=== PATIENT | female | born 1995 | race Caucasian/White ===

== ENCOUNTER 2019-03-19 16:15 | Observation (INO) | payer SELFPAY | END 2019-03-19 17:40 | disposition home or self-care (01) | LOC: MW.OBCHECK 16:15 → MW.OB 16:26 | PROVIDERS: ADMIT Obstetrics & Gynecology; ATTEND Obstetrics & Gynecology | DX: O99.89 Other specified diseases and conditions complicating pregnancy, childbirth and the puerperium (principal); R10.30 Lower abdominal pain, unspecified; Z91.040 Latex allergy status; Z3A.32 32 weeks gestation of pregnancy | CPT/HCPCS: 59025; 80305-QW; 81003 ==

== ENCOUNTER 2019-03-28 22:20 | Emergency (ER) | payer SELFPAY ==
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
[2019-03-28] MEDS ORDERED: Ondansetron 4 MG Tab.DIS PO ONE (23:05)
== END 2019-03-29 00:26 | disposition home or self-care (01) ==
LOC: MW.ED 22:20
DX: O99.343 Other mental disorders complicating pregnancy, third trimester (principal); F32.9 Major depressive disorder, single episode, unspecified; Z3A.33 33 weeks gestation of pregnancy; Z91.040 Latex allergy status
CPT/HCPCS: 59025; 99284; A9270

== ENCOUNTER 2019-05-08 00:47 | Inpatient (IN) | payer SELFPAY ==
[2019-05-08] MEDS ORDERED: Sodium Chloride 0.9% 10 ML Syringe FLUSH PRN (00:55)
[2019-05-08] MEDS ORDERED: Methylergonovine 0.2 MG/1 ML Amp IM PRN (00:55)
[2019-05-08] MEDS ORDERED: Terbutaline 1 MG/ML SDV SUBCUT PRN (00:55)
[2019-05-08] MEDS ORDERED: Carboprost Tromethamine 250 MCG/1 ML Amp IM PRN (00:55)
[2019-05-08] MEDS ORDERED: Tranexamic Acid 1,000 MG in Sodium Chloride 0.9% 100 ML IV PRN (00:55)
[2019-05-08] MEDS ORDERED: Butorphanol 1 MG/ML SDV IVPUSH PRN (00:55)
[2019-05-08] MEDS ORDERED: Sodium Chloride 0.9% 2.5 ML Syringe FLUSH PRN (00:55)
[2019-05-08] MEDS ORDERED: Misoprostol 200 MCG Tab PO PRN (00:55)
[2019-05-08] MEDS ORDERED: Sodium Chloride 0.9% 10 ML SDV IV PRN (00:55)
[2019-05-08] MEDS ORDERED: Lidocaine 1% 50 ML MDV INJECT PRN (00:55)
[2019-05-08] MEDS ORDERED: Water For Irrigation,Sterile 1,000 ML Container IRR PRN (00:55)
[2019-05-08] MEDS ORDERED: Misoprostol 25 MCG (1/4 of 100 MCG) Tab VAG PRN ×2 (00:55)
[2019-05-08] MEDS ORDERED: Oxytocin/0.9 % Sodium Chloride 30 UNIT/500 ML BAG IV SCH ×2 (01:00)
[2019-05-08] MEDS ORDERED: Ondansetron 4 MG/2 ML SDV IVPUSH PRN (01:03)
[2019-05-08] MEDS ORDERED: Ampicillin 2 GM in Sodium Chloride 0.9% 100 ML IV ONE (01:05)
[2019-05-08] MEDS: Misoprostol 25 MCG (1/4 of 100 MCG) Tab PO PRN ×2 (01:50→06:27)
[2019-05-08] MEDS ORDERED: Calcium Carbonate 500 MG Tab.Chew PO PRN (02:39)
[2019-05-08] MEDS ORDERED: Ranitidine 15 MG/ML Syrup 10 ML UD Cup PO SCH (02:45)
[2019-05-08] MEDS: Ampicillin 1 GM in Sodium Chloride 0.9% 50 ML IV SCH ×2 (06:25→11:00)
[2019-05-08] MEDS: Nalbuphine 10 MG/1 ML Vial IVPUSH PRN ×2 (06:25→08:54)
--- NOTE | 2019-05-08 08:30 | PCM.LDHP ---
L&D History of Present Illness - General Date of Service: 05/08/19 Admit Problem/Dx: Patient Status Order with Admit Dx/Problem 05/08/19 00:50 Patient Status [ADT] Routine Admission Diagnosis/Problem Admission Diagnosis/Problem 05/08/19 08:24 23 yo EDC 05/12/2019 39 3/7wk B+. RI, GBS neg. H&H 6.9/24.2, IOL for term. (late trans to clinic) Source of Information: Patient History Limitations: Reports: No Limitations - History of Present Illness Pain Score: 7 Improves with: Reports: None Worsens with: Reports: None Associated Symptoms: Reports: N - Related Data Allergies/Adverse Reactions: Allergies Allergy/AdvReac Type Severity Reaction Status Date / Time latex Allergy Itching Verified 03/28/19 22:30 Home Medications: Home Meds Pnv No.95/Ferrous Fum/Folic AC [ Caplet] 1 each PO 05/08/19 [History] Sertraline HCl 05/08/19 [History] Sertraline HCl 50 mg PO DAILY 05/08/19 [History] Past Medical History - Past Health History Medical/Surgical History: Denies Medical/Surgical History HIGH RISK OB History: Reports: Psychiatric History: Reports: Anxiety, Depression - Past Surgical History GI Surgical History: Reports: Hernia, Abdominal Social & Family History - Family History Family Medical History: Noncontributory - Tobacco Use Smoking Status *Q: Never Smoker Second Hand Smoke Exposure: No - Recreational Drug Use Recreational Drug Use: No H&P Review of Systems - Review of Systems: Review Of Systems: See Below General: Reports: No Symptoms HEENT: Reports: No Symptoms Pulmonary: Reports: No Symptoms Cardiovascular: Reports: No Symptoms Gastrointestinal: Reports: No Symptoms Genitourinary: Reports: No Symptoms Musculoskeletal: Reports: No Symptoms Skin: Reports: No Symptoms Psychiatric: Reports: No Symptoms Neurological: Reports: No Symptoms Hematologic/Lymphatic: Reports: No Symptoms Immunologic: Reports: No Symptoms L&D Exam - Exam Exam: See Below - Vital Signs Weight: 63.503 kg - OB Specific Contraction Intensity: Mild Movement: Active Heart Tones: Present Heart Rate (FHR) Variability: Moderate (6-25 bmp) Presentation: Vertex Estimated Weight: 3100 - Covington Score Covington Score Cervix Position: Midposition Covington Score Consistency: Soft [place]ton Score Effacement: 51-70% Covington Score Dilation: 1-2 cm Covington Score 's Station: -2 Covington Score Total: 7 - Exam General: Alert, Oriented, Cooperative HEENT: Hearing Intact Lungs: Clear to Auscultation, Normal Respiratory Effort. No: Decreased Breath Sounds Cardiovascular: Regular Rate, Regular Rhythm, Normal S1, Normal S2. No: Irregular Rhythm, Bradycardia, Tachycardia GI/Abdominal Exam: Soft, Non-Tender Rectal Exam: Deferred Genitourinary: Deferred, Cervical dilitation Back Exam: Normal Inspection, Full Range of Motion Extremities: Normal Inspection, Normal Range of Motion, Non-Tender, No Pedal Edema Skin: Warm, Dry, Intact Neurological: Cranial Nerves Intact, Strength Equal Bilateral, Normal Speech, Normal Tone, Sensation Intact Psychiatric: Alert, Normal Affect, Normal Mood - Patient Data Lab Results Last 24 hrs: Laboratory Results - last 24 hr 05/08/19 05/08/19 Range/Units 01:31 01:31 WBC 10.14 (4.0-11.0) K/uL RBC 3.36 L (4.30-5.90) M/uL Hgb 6.9 L (12.0-16.0) g/dL Hct 24.2 L (36.0-46.0) % MCV 72.0 L (80.0-98.0) fL MCH 20.5 L (27.0-32.0) pg MCHC 28.5 L (31.0-37.0) g/dL RDW Std Deviation 48.4 (28.0-62.0) fl RDW Coeff of Chago 19 H (11.0-15.0) % Plt Count 125 L (150-400) K/uL Nucleated RBC % 0.7 /100WBC Nucleated RBCs # 0 K/uL Blood Type B POSITIVE Antibody Screen NEGATIVE Result Diagrams: 05/08/19 01:31 - Problem List (1) Supervision of normal IUP (intrauterine ) in multigravida SNOMED Code(s): 302273322, 219512954, 005866893 ICD Code: Z34.80 - ENCOUNTER FOR SUPRVSN OF NORMAL , UNSP TRIMESTER Status: Acute Priority: High Current Visit: Yes Qualifiers: Trimester: third trimester Qualified Code(s): Z34.83 - Encounter for supervision of other normal , third trimester (2) Anemia affecting SNOMED Code(s): 95407631 ICD Code: O99.019 - ANEMIA COMPLICATING , UNSPECIFIED TRIMESTER Status: Acute Priority: High Current Visit: Yes Qualifiers: Trimester: third trimester Qualified Code(s): O99.013 - Anemia complicating , third trimester Problem List Initiated/Reviewed/Updated: Yes Orders Last 24hrs: Active Orders 24 hr Category Date Time Status Patient Status [ADT] Routine ADT 05/08/19 00:50 Active Bedrest Bathroom Privileges [RC] ASDIRECTED Care 05/08/19 00:55 Active Communication Order [RC] ASDIRECTED Care 05/08/19 00:55 Active Communication Order [RC] ASDIRECTED Care 05/08/19 00:55 Active Communication Order [RC] ASDIRECTED Care 05/08/19 00:55 Active Heart Tones [RC] CONTINUOUS Care 05/08/19 00:55 Active Non Stress Test [RC] PER UNIT ROUTINE Care 05/08/19 00:55 Active May Shower [RC] ASDIRECTED Care 05/08/19 00:55 Active Notify Provider [RC] PRN Care 05/08/19 00:55 Active Notify Provider [RC] PRN Care 05/08/19 00:55 Active Notify Provider [RC] STAT Care 05/08/19 00:55 Active Oxygen Therapy [RC] ASDIRECTED Care 05/08/19 00:55 Active Up ad Adelita [RC] ASDIRECTED Care 05/08/19 00:55 Active Vaginal Exam [RC] PRN Care 05/08/19 00:55 Active Vital Signs [RC] PER UNIT ROUTINE Care 05/08/19 00:55 Active Ampicillin 1 gm Med 05/08/19 05:00 Active Sodium Chloride 0.9% [Normal Saline] 50 ml IV Q4H Butorphanol [Stadol] Med 05/08/19 00:55 Active 1 mg IVPUSH Q1H PRN Calcium Carbonate [Tums] Med 05/08/19 02:39 Active 1,000 mg PO Q2HR PRN Carboprost Tromethamine [Hemabate DS] Med 05/08/19 00:55 Active 250 mcg IM ASDIRECTED PRN Lactated Ringers [Ringers, Lactated] 1,000 ml Med 05/08/19 01:00 Active IV ASDIRECTED Lidocaine 1% [Xylocaine 1%] Med 05/08/19 00:55 Active 50 ml INJECT ONETIME PRN Methylergonovine [Methergine] Med 05/08/19 00:55 Active 0.2 mg IM ASDIRECTED PRN Nalbuphine [Nubain] Med 05/08/19 00:55 Active 10 mg IVPUSH Q1H PRN Ondansetron [Zofran] Med 05/08/19 01:03 Active 4 mg IVPUSH Q6H PRN Oxytocin/0.9 % Sodium Chloride [Oxytocin 30 Unit/500 ML Med 05/08/19 01:00 Active -NS] 30 unit in 500 ml IV TITRATE Oxytocin/0.9 % Sodium Chloride [Oxytocin 30 Unit/500 ML Med 05/08/19 01:00 Active -NS] 30 unit in 500 ml IV TITRATE Ranitidine [Zantac] Med 05/08/19 02:45 Active 150 mg PO BID Sodium Chloride 0.9% [Normal Saline] Med 05/08/19 00:55 Active 10 ml IV ASDIRECTED PRN Sodium Chloride 0.9% [Saline Flush] Med 05/08/19 00:55 Active 10 ml FLUSH ASDIRECTED PRN Sodium Chloride 0.9% [Saline Flush] Med 05/08/19 00:55 Active 2.5 ml FLUSH ASDIRECTED PRN Terbutaline [Brethine] Med 05/08/19 00:55 Active 0.25 mg SUBCUT ASDIRECTED PRN Tranexamic Acid [Cyklokapron] 1,000 mg Med 05/08/19 00:55 Active Sodium Chloride 0.9% [Normal Saline] 100 ml IV ONETIME Water For Irrigation,Sterile [Sterile Water for Med 05/08/19 00:55 Active Irrigation] 1,000 ml IRR ASDIRECTED PRN miSOPROStol [Cytotec] Med 05/08/19 00:55 Active 200 mcg PO ONETIME PRN miSOPROStol [Cytotec] Med 05/08/19 01:00 Active 25 mcg PO Q4H PRN miSOPROStol [Cytotec] Med 05/08/19 00:55 Active 25 mcg VAG ONETIME PRN miSOPROStol [Cytotec] Med 05/08/19 00:55 Active 25 mcg VAG Q4H PRN Scalp Electrode [WOMSER] Per Unit Routine Oth 05/08/19 00:55 Ordered Medication Administration Instruction [OM.PC] Q3H Oth 05/08/19 01:00 Ordered Peripheral IV Insertion Adult [OM.PC] Routine Oth 05/08/19 00:55 Ordered Resuscitation Status Routine Resus Stat 05/08/19 00:55 Ordered Medication Orders Butorphanol Tartrate (Stadol) 1 mg IVPUSH Q1H PRN PRN Reason: Pain Calcium Carbonate/Glycine (Tums) 1,000 mg PO Q2HR PRN PRN Reason: Indigestion Last Admin: 05/08/19 02:57 Dose: 1,000 mg Carboprost Tromethamine (Hemabate Ds) 250 mcg IM ASDIRECTED PRN PRN Reason: Post Hemorrhage Lactated Ringer's (Ringers, Lactated) 1,000 mls @ 150 mls/hr IV ASDIRECTED SERGO Oxytocin/Sodium Chloride (Oxytocin 30 Unit/500 Ml-Ns) 30 unit in 500 mls @ 999 mls/hr IV TITRATE SERGO Oxytocin/Sodium Chloride (Oxytocin 30 Unit/500 Ml-Ns) 30 unit in 500 mls @ 2 mls/hr IV TITRATE SERGO; Protocol Tranexamic Acid 1,000 mg/ (Sodium Chloride) 110 mls @ 660 mls/hr IV ONETIME PRN PRN Reason: Bleeding Ampicillin Sodium 1 gm/ Sodium (Chloride) 50 mls @ 100 mls/hr IV Q4H SERGO Last Admin: 05/08/19 06:25 Dose: 100 mls/hr Lidocaine HCl (Xylocaine 1%) 50 ml INJECT ONETIME PRN PRN Reason: Laceration repair Methylergonovine Maleate (Methergine) 0.2 mg IM ASDIRECTED PRN PRN Reason: Post Hemorrhage Misoprostol (Cytotec) 200 mcg PO ONETIME PRN PRN Reason: Post Hemorrhage Misoprostol (Cytotec) 25 mcg VAG ONETIME PRN PRN Reason: Cervical Ripening Last Admin: 05/08/19 02:15 Dose: 25 mcg Misoprostol (Cytotec) 25 mcg VAG Q4H PRN PRN Reason: Cervical Ripening Last Admin: 05/08/19 06:30 Dose: 25 mcg Misoprostol (Cytotec) 25 mcg PO Q4H PRN PRN Reason: Other Last Admin: 05/08/19 06:27 Dose: 25 mcg Admin: 05/08/19 01:50 Dose: 25 mcg Nalbuphine HCl (Nubain) 10 mg IVPUSH Q1H PRN PRN Reason: Pain (severe 7-10) Last Admin: 05/08/19 06:25 Dose: 10 mg Ondansetron HCl (Zofran) 4 mg IVPUSH Q6H PRN PRN Reason: Nausea/Vomiting Ranitidine HCl (Zantac) 150 mg PO BID SERGO Last Admin: 05/08/19 04:47 Dose: 150 mg Sodium Chloride (Saline Flush) 10 ml FLUSH ASDIRECTED PRN PRN Reason: Keep Vein Open Sodium Chloride (Saline Flush) 2.5 ml FLUSH ASDIRECTED PRN PRN Reason: Keep Vein Open Sodium Chloride (Normal Saline) 10 ml IV ASDIRECTED PRN PRN Reason: IV Use Sterile Water (Sterile Water For Irrigation) 1,000 ml IRR ASDIRECTED PRN PRN Reason: delivery Terbutaline Sulfate (Brethine) 0.25 mg SUBCUT ASDIRECTED PRN PRN Reason: Tacysystole Assessment/Plan Comment:: IOL A: 23 yo EDC 05/12/2019 39 3/7wk B+. RI, GBS neg. H&H 6.9/24.2, IOL for term. (late trans to clinic) P: Admit, Cytotec to Pitocin, T&C due to Hgb, epidural prn, anticipate , Dr Alcaraz updated
[2019-05-08] MEDS ORDERED: fentaNYL 100 MCG/2 ML SDV ONE (10:48)
[2019-05-08] MEDS ORDERED: Ropivacaine 0.2% 2 MG/ML 20 ML SDV ONE (10:53)
[2019-05-08] MEDS: Lactated Ringers 1,000 ML IV SCH ×2 (11:00→14:12)
--- NOTE | 2019-05-08 11:23 | PCM.PREANE ---
Preanesthetic Assessment - Anesthesia/Transfusion/Family Hx Anesthesia History: Prior Anesthesia Without Reaction Family History of Anesthesia Reaction: No Transfusion History: Prior Transfusion Without Reaction - Review of Systems General: No Symptoms Pulmonary: No Symptoms Cardiovascular: No Symptoms Neurological: No Symptoms Other: Reports: None - Physical Assessment NPO Status Date: 05/08/19 Height: 5 ft Weight: 63.503 kg ASA Class: 3 Mental Status: Alert & Oriented x3 Airway Class: Mallampati = 2 Dentition: Reports: Normal Dentition ROM/Head Extension: Full Lungs: Clear to Auscultation, Normal Respiratory Effort Cardiovascular: Regular Rate, Regular Rhythm - Lab Values: Laboratory Last Values WBC 10.14 K/uL (4.0-11.0) 05/08/19 01:31 RBC 3.36 M/uL (4.30-5.90) L 05/08/19 01:31 Hgb 6.9 g/dL (12.0-16.0) L 05/08/19 01:31 Hct 24.2 % (36.0-46.0) L 05/08/19 01:31 MCV 72.0 fL (80.0-98.0) L 05/08/19 01:31 MCH 20.5 pg (27.0-32.0) L 05/08/19 01:31 MCHC 28.5 g/dL (31.0-37.0) L 05/08/19 01:31 RDW Std Deviation 48.4 fl (28.0-62.0) 05/08/19 01:31 RDW Coeff of Chago 19 % (11.0-15.0) H 05/08/19 01:31 Plt Count 125 K/uL (150-400) L 05/08/19 01:31 Nucleated RBC % 0.7 /100WBC 05/08/19 01:31 Nucleated RBCs # 0 K/uL 05/08/19 01:31 Blood Type B POSITIVE 05/08/19 01:31 Antibody Screen NEGATIVE 05/08/19 01:31 - Allergies Allergies/Adverse Reactions: Allergies Allergy/AdvReac Type Severity Reaction Status Date / Time latex Allergy Itching Verified 03/28/19 22:30 - Anesthesia Plan Pre-Op Medication Ordered: None - Acknowledgements Anesthesia Type Planned: Epidural Pt an Appropriate Candidate for the Planned Anesthesia: Yes Alternatives and Risks of Anesthesia Discussed w Pt/Guardian: Yes Pt/Guardian Understands and Agrees with Anesthesia Plan: Yes Additional Comments: anemia- chronic arrival Hb=6.9. will T&C x 2 units and get iron profile. 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: Psychiatric History: Reports: Anxiety, Depression - Past Surgical History GI Surgical History: Reports: Hernia, Abdominal - SUBSTANCE USE Smoking Status *Q: Never Smoker Second Hand Smoke Exposure: No Recreational Drug Use History: No - HOME MEDS Home Medications: Home Meds Pnv No.95/Ferrous Fum/Folic AC [ Caplet] 1 each PO 05/08/19 [History] Sertraline HCl 05/08/19 [History] Sertraline HCl 50 mg PO DAILY 05/08/19 [History] - CURRENT (IN HOUSE) MEDS Current Meds: Current Medications Butorphanol Tartrate (Stadol) 1 mg IVPUSH Q1H PRN PRN Reason: Pain Calcium Carbonate/Glycine (Tums) 1,000 mg PO Q2HR PRN PRN Reason: Indigestion Last Admin: 05/08/19 02:57 Dose: 1,000 mg Carboprost Tromethamine (Hemabate Ds) 250 mcg IM ASDIRECTED PRN PRN Reason: Post Hemorrhage Lactated Ringer's (Ringers, Lactated) 1,000 mls @ 150 mls/hr IV ASDIRECTED [facility] Oxytocin/Sodium Chloride (Oxytocin 30 Unit/500 Ml-Ns) 30 unit in 500 mls @ 999 mls/hr IV TITRATE [facility] Oxytocin/Sodium Chloride (Oxytocin 30 Unit/500 Ml-Ns) 30 unit in 500 mls @ 2 mls/hr IV TITRATE [facility]; Protocol Tranexamic Acid 1,000 mg/ (Sodium Chloride) 110 mls @ 660 mls/hr IV ONETIME PRN PRN Reason: Bleeding Ampicillin Sodium 1 gm/ Sodium (Chloride) 50 mls @ 100 mls/hr IV Q4H [facility] Last Admin: 05/08/19 06:25 Dose: 100 mls/hr Lidocaine HCl (Xylocaine 1%) 50 ml INJECT ONETIME PRN PRN Reason: Laceration repair Methylergonovine Maleate (Methergine) 0.2 mg IM ASDIRECTED PRN PRN Reason: Post Hemorrhage Misoprostol (Cytotec) 200 mcg PO ONETIME PRN PRN Reason: Post Hemorrhage Misoprostol (Cytotec) 25 mcg VAG ONETIME PRN PRN Reason: Cervical Ripening Last Admin: 05/08/19 02:15 Dose: 25 mcg Misoprostol (Cytotec) 25 mcg VAG Q4H PRN PRN Reason: Cervical Ripening Last Admin: 05/08/19 06:30 Dose: 25 mcg Misoprostol (Cytotec) 25 mcg PO Q4H PRN PRN Reason: Other Last Admin: 05/08/19 06:27 Dose: 25 mcg Nalbuphine HCl (Nubain) 10 mg IVPUSH Q1H PRN PRN Reason: Pain (severe 7-10) Last Admin: 05/08/19 08:54 Dose: 10 mg Ondansetron HCl (Zofran) 4 mg IVPUSH Q6H PRN PRN Reason: Nausea/Vomiting Ranitidine HCl (Zantac) 150 mg PO BID [facility]GO Last Admin: 05/08/19 04:47 Dose: 150 mg Sodium Chloride (Saline Flush) 10 ml FLUSH ASDIRECTED PRN PRN Reason: Keep Vein Open Sodium Chloride (Saline Flush) 2.5 ml FLUSH ASDIRECTED PRN PRN Reason: Keep Vein Open Sodium Chloride (Normal Saline) 10 ml IV ASDIRECTED PRN PRN Reason: IV Use Sterile Water (Sterile Water For Irrigation) 1,000 ml IRR ASDIRECTED PRN PRN Reason: delivery Terbutaline Sulfate (Brethine) 0.25 mg SUBCUT ASDIRECTED PRN PRN Reason: Tacysystole Discontinued Medications Fentanyl (Sublimaze) Confirm Administered Dose 100 mcg .ROUTE .STK-MED ONE Stop: 05/08/19 10:49 Ampicillin Sodium 2 gm/ Sodium (Chloride) 100 mls @ 200 mls/hr IV ONETIME ONE Stop: 05/08/19 01:34 Last Admin: 05/08/19 01:50 Dose: 200 mls/hr Fentanyl/Bupivacaine HCl (Risbyhvh-Pplve-Ep 2 Mcg/Ml-0.125%) Confirm Administered Dose 100 mls @ as directed .ROUTE .STK-MED ONE Stop: 05/08/19 10:50 Ropivacaine (Naropin 0.2%) Confirm Administered Dose 20 ml .ROUTE .STK-MED ONE Stop: 05/08/19 10:54
--- NOTE | 2019-05-08 15:50 | PCM.DEL ---
L & D Note - General Info Date of Service: 05/08/19 Mother's Due Date: 05/12/19 - Delivery Note Labor: Augmented by Oxytocin Cervical Ripening Method: Misoprostil Delivery Outcome: Livebirth Infant Delivery Method: Spontaneous Vaginal Delivery-Single Delivery Mode: Spontaneous Presentation: Vertex Nuchal Cord: None Anesthesia Type: Epidural Amniotic Fluid Description: Clear Episiotomy Type: None Laceration: None Placenta: Intact, Spontaneous Cord: 3 Vessels Resuscitation Needed: No Ophir: Stimulated Score 1 min: 8 Score 5 min: 9 Second Stage Interventions: Reports: Pushing, Pulls Own Legs Back Delivery Comments (Free Text/Narrative):: of viable male, head delivered with good pushing, nuchal x1 reduced over head. Shoulders and body followed easily. to mothers abd. RN at for evaluation. Cord clamped and cut by FOB so infant can go to warmer for evaluation and he then had spont cry. Pitocin to IVF. Placenta delivered grossly intact. Inspection noted intact perineum. EBL 150cc, APGARS 8/9. Mother and baby left in stable condition for recovery. Induction Criteria - Covington Score Covington Score Dilation: 1-2 cm C[place]ton Score Effacement: 60-70% C[place]ton Score Infant's Station: -2 [place] Score Consistency: Soft [place] Score Cervix Position: Posterior [place] Score Total: 6 Covington Score Presenting Part: Reports: Cephalic - Induction Gestational Age >/= 39 wks: Yes Estimated Pelvis: Reports: Adequate Reassuring Monitoring Strip: Yes Absence of Tachy Systole: Yes - General Info Date of Service: 05/08/19 Admission Dx/Problem (Free Text): Patient Status Order with Admit Dx/Problem 05/08/19 00:50 Patient Status [ADT] Routine Admission Diagnosis/Problem Admission Diagnosis/Problem 05/08/19 08:24 23 yo EDC 05/12/2019 39 3/7wk B+. RI, GBS neg. H&H 6.9/24.2, IOL for term. (late trans to clinic) Functional Status: Reports: Pain Controlled - Review of Systems General: Reports: No Symptoms HEENT: Reports: No Symptoms Pulmonary: Reports: No Symptoms Cardiovascular: Reports: No Symptoms Gastrointestinal: Reports: No Symptoms Genitourinary: Reports: No Symptoms Musculoskeletal: Reports: No Symptoms Skin: Reports: No Symptoms Neurological: Reports: No Symptoms Psychiatric: Reports: No Symptoms - Patient Data Weight - Most Recent: 63.503 kg Lab Results Last 24 Hours: Laboratory Results - last 24 hr 05/08/19 05/08/19 05/08/19 Range/Units 01:31 01:31 12:31 WBC 10.14 (4.0-11.0) K/uL RBC 3.36 L (4.30-5.90) M/uL Hgb 6.9 L (12.0-16.0) g/dL Hct 24.2 L (36.0-46.0) % MCV 72.0 L (80.0-98.0) fL MCH 20.5 L (27.0-32.0) pg MCHC 28.5 L (31.0-37.0) g/dL RDW Std Deviation 48.4 (28.0-62.0) fl RDW Coeff of Chago 19 H (11.0-15.0) % Plt Count 125 L (150-400) K/uL Nucleated RBC % 0.7 /100WBC Nucleated RBCs # 0 K/uL Iron 19 L (50-175) ug/dL TIBC 565 H (250-450) ug/dL % Saturation 3.36 L (20-55) % Blood Type B POSITIVE Antibody Screen NEGATIVE Crossmatch See Detail Med Orders - Current: Current Medications Butorphanol Tartrate (Stadol) 1 mg IVPUSH Q1H PRN PRN Reason: Pain Calcium Carbonate/Glycine (Tums) 1,000 mg PO Q2HR PRN PRN Reason: Indigestion Last Admin: 05/08/19 02:57 Dose: 1,000 mg Carboprost Tromethamine (Hemabate Ds) 250 mcg IM ASDIRECTED PRN PRN Reason: Post Hemorrhage Lactated Ringer's (Ringers, Lactated) 1,000 mls @ 150 mls/hr IV ASDIRECTED [facility] Last Admin: 05/08/19 14:12 Dose: 150 mls/hr Oxytocin/Sodium Chloride (Oxytocin 30 Unit/500 Ml-Ns) 30 unit in 500 mls @ 999 mls/hr IV TITRATE [facility] Oxytocin/Sodium Chloride (Oxytocin 30 Unit/500 Ml-Ns) 30 unit in 500 mls @ 2 mls/hr IV TITRATE [facility]; Protocol Last Titration: 05/08/19 14:36 Dose: 4 munits/min, 4 mls/hr Tranexamic Acid 1,000 mg/ (Sodium Chloride) 110 mls @ 660 mls/hr IV ONETIME PRN PRN Reason: Bleeding Ampicillin Sodium 1 gm/ Sodium (Chloride) 50 mls @ 100 mls/hr IV Q4H [facility] Last Admin: 05/08/19 11:00 Dose: 100 mls/hr Lidocaine HCl (Xylocaine 1%) 50 ml INJECT ONETIME PRN PRN Reason: Laceration repair Methylergonovine Maleate (Methergine) 0.2 mg IM ASDIRECTED PRN PRN Reason: Post Hemorrhage Misoprostol (Cytotec) 200 mcg PO ONETIME PRN PRN Reason: Post Hemorrhage Misoprostol (Cytotec) 25 mcg VAG ONETIME PRN PRN Reason: Cervical Ripening Last Admin: 05/08/19 02:15 Dose: 25 mcg Misoprostol (Cytotec) 25 mcg VAG Q4H PRN PRN Reason: Cervical Ripening Last Admin: 05/08/19 06:30 Dose: 25 mcg Misoprostol (Cytotec) 25 mcg PO Q4H PRN PRN Reason: Other Last Admin: 05/08/19 06:27 Dose: 25 mcg Nalbuphine HCl (Nubain) 10 mg IVPUSH Q1H PRN PRN Reason: Pain (severe 7-10) Last Admin: 05/08/19 08:54 Dose: 10 mg Ondansetron HCl (Zofran) 4 mg IVPUSH Q6H PRN PRN Reason: Nausea/Vomiting Ranitidine HCl (Zantac) 150 mg PO BID [facility] Last Admin: 05/08/19 04:47 Dose: 150 mg Sodium Chloride (Saline Flush) 10 ml FLUSH ASDIRECTED PRN PRN Reason: Keep Vein Open Sodium Chloride (Saline Flush) 2.5 ml FLUSH ASDIRECTED PRN PRN Reason: Keep Vein Open Sodium Chloride (Normal Saline) 10 ml IV ASDIRECTED PRN PRN Reason: IV Use Sterile Water (Sterile Water For Irrigation) 1,000 ml IRR ASDIRECTED PRN PRN Reason: delivery Terbutaline Sulfate (Brethine) 0.25 mg SUBCUT ASDIRECTED PRN PRN Reason: Tacysystole Discontinued Medications Fentanyl (Sublimaze) Confirm Administered Dose 100 mcg .ROUTE .STK-MED ONE Stop: 05/08/19 10:49 Ampicillin Sodium 2 gm/ Sodium (Chloride) 100 mls @ 200 mls/hr IV ONETIME ONE Stop: 05/08/19 01:34 Last Admin: 05/08/19 01:50 Dose: 200 mls/hr Fentanyl/Bupivacaine HCl (Vhllxgmg-Alwwb-Oq 2 Mcg/Ml-0.125%) Confirm Administered Dose 100 mls @ as directed .ROUTE .STK-MED ONE Stop: 05/08/19 10:50 Ropivacaine (Naropin 0.2%) Confirm Administered Dose 20 ml .ROUTE .STK-MED ONE Stop: 05/08/19 10:54 - Exam General: Alert, Oriented, Cooperative, No Acute Distress Lungs: Normal Respiratory Effort GI/Abdominal Exam: Soft, Non-Tender (Female) Exam: Normal External Exam, Normal Bimanual Exam, Vaginal Bleeding. No: Vaginal Lesions, Vaginal Tears Back Exam: Normal Inspection Extremities: Normal Range of Motion, No Pedal Edema Skin: Warm, Dry, Intact Neurological: No New Focal Deficit, Normal Speech, Normal Tone, Strength Equal Bilateral Psy/Mental Status: Alert - Problem List & Annotations (1) Supervision of normal IUP (intrauterine ) in multigravida SNOMED Code(s): 573829226, 700765520, 623713212 Code(s): Z34.80 - ENCOUNTER FOR SUPRVSN OF NORMAL , UNSP TRIMESTER Status: Acute Priority: High Current Visit: Yes Qualifiers: Trimester: third trimester Qualified Code(s): Z34.83 - Encounter for supervision of other normal , third trimester (2) Anemia affecting SNOMED Code(s): 85819471 Code(s): O99.019 - ANEMIA COMPLICATING , UNSPECIFIED TRIMESTER Status: Acute Priority: High Current Visit: Yes Qualifiers: Trimester: third trimester Qualified Code(s): O99.013 - Anemia complicating , third trimester (3) (normal spontaneous vaginal delivery) SNOMED Code(s): 92161432, 731189362 Code(s): O80 - ENCOUNTER FOR FULL-TERM UNCOMPLICATED DELIVERY Status: Acute Priority: High Current Visit: Yes - Problem List Review Problem List Initiated/Reviewed/Updated: Yes - Plan Plan:: IOL A: 23 yo EDC 05/12/2019 39 3/7wk B+. RI, GBS neg. H&H 6.9/24.2, IOL for term. (late trans to clinic) P: Admit, Cytotec to Pitocin, T&C due to Hgb, epidural prn, anticipate , Dr Alcaraz updated Delivery A: male, APGARS 8/9, Wt pending bonding, Intact, EBL 150cc. Stable P: Routine pp poc
[2019-05-08] MEDS ORDERED: Acetaminophen 500 MG Tab PO PRN (15:53)
[2019-05-08] MEDS ORDERED: oxyCODONE 5 MG Tab PO PRN (15:53)
[2019-05-08] MEDS ORDERED: Witch Hazel Medicated Pads 40/Jar TOP PRN (15:53)
[2019-05-08] MEDS ORDERED: Lanolin 100% Cream 7 GM Tube TOP PRN (15:53)
[2019-05-08] MEDS ORDERED: Benzocaine/Menthol 20%-0.5% Spray 78 GM Cannister TOP PRN (15:53)
[2019-05-08] MEDS ORDERED: Bisacodyl 10 MG Supp RECTAL PRN (15:53)
[2019-05-08] MEDS ORDERED: Ibuprofen 400 MG Tab PO PRN (15:53)
[2019-05-08] MEDS ORDERED: Ondansetron 4 MG/2 ML SDV IVPUSH ONE (17:20)
[2019-05-08] MEDS: Ibuprofen 800 MG Tab PO PRN (17:40)
[2019-05-08] MEDS: Acetaminophen 500 MG Tab PO PRN (17:40)
[2019-05-08] MEDS: Docusate Sodium 100 MG Cap PO PRN (22:45)
[2019-05-09] MEDS: Acetaminophen 500 MG Tab PO PRN ×3 (01:21→13:41)
[2019-05-09] MEDS: Ibuprofen 800 MG Tab PO PRN ×2 (02:21→08:41)
[2019-05-09] MEDS: Docusate Sodium 100 MG Cap PO PRN (08:08)
--- NOTE | 2019-05-09 10:08 | PCM.PNPP ---
- General Info Date of Service: 05/09/19 Functional Status: Reports: Pain Controlled - Review of Systems General: Reports: No Symptoms HEENT: Reports: No Symptoms Pulmonary: Reports: No Symptoms Cardiovascular: Reports: No Symptoms Gastrointestinal: Reports: No Symptoms Genitourinary: Reports: No Symptoms Musculoskeletal: Reports: No Symptoms Skin: Reports: No Symptoms Neurological: Reports: No Symptoms Psychiatric: Reports: No Symptoms - General Info Date of Service: 05/09/19 - Patient Data Vital Signs - Most Recent: Last Vital Signs Temp 36.8 C 05/09/19 09:00 Pulse 93 05/09/19 09:00 Resp 18 05/09/19 09:00 BP 118/55 L 05/09/19 09:00 Pulse Ox 97 05/09/19 09:00 Weight - Most Recent: 63.503 kg I&O - Last 24 Hours: Intake & Output 05/08/19 05/09/19 05/09/19 22:59 06:59 14:59 Intake Total 350 350 Balance 350 350 Lab Results - Last 24 Hours: Laboratory Results - last 24 hr 05/08/19 05/08/19 05/09/19 Range/Units 01:31 12:31 05:25 Hgb 8.6 L (12.0-16.0) g/dL Hct 28.6 L (36.0-46.0) % Iron 19 L (50-175) ug/dL TIBC 565 H (250-450) ug/dL % Saturation 3.36 L (20-55) % Blood Type B POSITIVE Antibody Screen NEGATIVE Crossmatch See Detail Med Orders - Current: Current Medications Acetaminophen (Tylenol Extra Strength) 500 mg PO Q4H PRN PRN Reason: Pain Acetaminophen (Tylenol Extra Strength) 1,000 mg PO Q4H PRN PRN Reason: Pain Last Admin: 05/09/19 08:02 Dose: 1,000 mg Benzocaine/Menthol (Dermoplast Pain Relief 20%-0.5% [place]) 78 gm TOP ASDIRECTED PRN PRN Reason: Perineal Comfort Measure Last Admin: 05/08/19 17:39 Dose: 78 gm Bisacodyl (Dulcolax) 10 mg RECTAL ONETIME PRN PRN Reason: Constipation Docusate Sodium (Colace) 100 mg PO BID PRN PRN Reason: Constipation Last Admin: 05/09/19 08:08 Dose: 100 mg Emollient Ointment (Lansinoh Hpa) 0 gm TOP ASDIRECTED PRN PRN Reason: Sore Nipples Last Admin: 05/08/19 17:39 Dose: 7 gm Ibuprofen (Motrin) 400 mg PO Q4H PRN PRN Reason: Pain Ibuprofen (Motrin) 800 mg PO Q6H PRN PRN Reason: Pain Last Admin: 05/09/19 08:41 Dose: 800 mg Oxycodone HCl (Oxycodone) 5 mg PO Q2H PRN PRN Reason: Pain Witch Cate (Tucks) 1 pad TOP ASDIRECTED PRN PRN Reason: comfort care Last Admin: 05/08/19 22:45 Dose: 1 tub Discontinued Medications Butorphanol Tartrate (Stadol) 1 mg IVPUSH Q1H PRN PRN Reason: Pain Calcium Carbonate/Glycine (Tums) 1,000 mg PO Q2HR PRN PRN Reason: Indigestion Last Admin: 05/08/19 02:57 Dose: 1,000 mg Carboprost Tromethamine (Hemabate Ds) 250 mcg IM ASDIRECTED PRN PRN Reason: Post Hemorrhage Fentanyl (Sublimaze) Confirm Administered Dose 100 mcg .ROUTE .STK-MED ONE Stop: 05/08/19 10:49 Lactated Ringer's (Ringers, Lactated) 1,000 mls @ 150 mls/hr IV ASDIRECTED [facility] Last Admin: 05/08/19 14:12 Dose: 150 mls/hr Oxytocin/Sodium Chloride (Oxytocin 30 Unit/500 Ml-Ns) 30 unit in 500 mls @ 999 mls/hr IV TITRATE [facility] Oxytocin/Sodium Chloride (Oxytocin 30 Unit/500 Ml-Ns) 30 unit in 500 mls @ 2 mls/hr IV TITRATE [facility]; Protocol Last Titration: 05/08/19 14:36 Dose: 4 munits/min, 4 mls/hr Tranexamic Acid 1,000 mg/ (Sodium Chloride) 110 mls @ 660 mls/hr IV ONETIME PRN PRN Reason: Bleeding Ampicillin Sodium 2 gm/ Sodium (Chloride) 100 mls @ 200 mls/hr IV ONETIME ONE Stop: 05/08/19 01:34 Last Admin: 05/08/19 01:50 Dose: 200 mls/hr Ampicillin Sodium 1 gm/ Sodium (Chloride) 50 mls @ 100 mls/hr IV Q4H [facility] Last Admin: 05/08/19 11:00 Dose: 100 mls/hr Fentanyl/Bupivacaine HCl (Vhaczppy-Dvnbn-Mo 2 Mcg/Ml-0.125%) Confirm Administered Dose 100 mls @ as directed .ROUTE .[employer] ONE Stop: 05/08/19 10:50 Lidocaine HCl (Xylocaine 1%) 50 ml INJECT ONETIME PRN PRN Reason: Laceration repair Methylergonovine Maleate (Methergine) 0.2 mg IM ASDIRECTED PRN PRN Reason: Post Hemorrhage Misoprostol (Cytotec) 200 mcg PO ONETIME PRN PRN Reason: Post Hemorrhage Misoprostol (Cytotec) 25 mcg VAG ONETIME PRN PRN Reason: Cervical Ripening Last Admin: 05/08/19 02:15 Dose: 25 mcg Misoprostol (Cytotec) 25 mcg VAG Q4H PRN PRN Reason: Cervical Ripening Last Admin: 05/08/19 06:30 Dose: 25 mcg Misoprostol (Cytotec) 25 mcg PO Q4H PRN PRN Reason: Other Last Admin: 05/08/19 06:27 Dose: 25 mcg Nalbuphine HCl (Nubain) 10 mg IVPUSH Q1H PRN PRN Reason: Pain (severe 7-10) Last Admin: 05/08/19 08:54 Dose: 10 mg Ondansetron HCl (Zofran) 4 mg IVPUSH Q6H PRN PRN Reason: Nausea/Vomiting Ondansetron HCl (Zofran) 4 mg IVPUSH ONETIME ONE Stop: 05/08/19 17:21 Last Admin: 05/08/19 17:41 Dose: 4 mg Ranitidine HCl (Zantac) 150 mg PO BID [facility] Last Admin: 05/08/19 04:47 Dose: 150 mg Ropivacaine (Naropin 0.2%) Confirm Administered Dose 20 ml .ROUTE .[place]-MED ONE Stop: 05/08/19 10:54 Sodium Chloride (Saline Flush) 10 ml FLUSH ASDIRECTED PRN PRN Reason: Keep Vein Open Sodium Chloride (Saline Flush) 2.5 ml FLUSH ASDIRECTED PRN PRN Reason: Keep Vein Open Sodium Chloride (Normal Saline) 10 ml IV ASDIRECTED PRN PRN Reason: IV Use Sterile Water (Sterile Water For Irrigation) 1,000 ml IRR ASDIRECTED PRN PRN Reason: delivery Terbutaline Sulfate (Brethine) 0.25 mg SUBCUT ASDIRECTED PRN PRN Reason: Tacysystole - Infant Interaction Disposition, : in Room with Family Infant Interaction: Holding Feeding: Attempted ; Nursed Fair/Poor Support Person: - Recovery Exam Fundal Tone: Firm Fundal Level: 1 Fingerbreadths Below Umbilicus Fundal Placement: Midline Lochia Amount: Scant Lochia Color: Rubra/Red Perineum Description: Edematous Episiotomy/Laceration: None Bladder Status: Voiding - Exam General: Alert, Oriented HEENT: Pupils Equal Neck: Supple Lungs: Clear to Auscultation, Normal Respiratory Effort Cardiovascular: Regular Rate, Regular Rhythm GI/Abdominal Exam: Normal Bowel Sounds, Soft, Non-Tender, No Organomegaly, No Distention, No Abnormal Bruit, No Mass, Pelvis Stable Extremities: Normal Inspection, Normal Range of Motion, Non-Tender, No Pedal Edema, Normal Capillary Refill Skin: Warm, Dry, Intact Wound/Incisions: Healing Well Neurological: No New Focal Deficit Psy/Mental Status: Alert, Normal Affect, Normal Mood - Problem List Review Problem List Initiated/Reviewed/Updated: Yes - My Orders Last 24 Hours: My Active Orders 05/08/19 19:16 Transfuse PRBC [Transfuse Red Blood Cells] [COMM] Routine - Assessment Assessment:: Her hematocrit is improved to 28 after 2 units of transfusion. The patient feel better she is advised to continue to take iron and vitamin for 3 months daily after discharge - Plan Plan:: IOL A: 23 yo EDC 05/12/2019 39 3/7wk B+. RI, GBS neg. H&H 6.9/24.2, IOL for term. (late trans to clinic) P: Admit, Cytotec to Pitocin, T&C due to Hgb, epidural prn, anticipate , Dr Alcaraz updated Delivery A: male, APGARS 8/9, Wt pending bonding, Intact, EBL 150cc. Stable P: Routine pp poc
== END 2019-05-09 19:05 | disposition home or self-care (01) | DRG 807 ==
LOC: MW.OBCHECK 00:47 → MW.OB 00:50 → MW.OBCHECK 00:50 → MW.OB 00:53 → OBSVTOIN 15:33 → MW.OB 05-09 00:18
PROVIDERS: ADMIT Obstetrics & Gynecology; ATTEND Obstetrics & Gynecology
PROC: 10E0XZZ Delivery of Products of Conception, External Approach (ICD-10-PCS; principal; 2019-05-08)
PROC: 30233N1 Transfusion of Nonautologous Red Blood Cells into Peripheral Vein, Percutaneous Approach (ICD-10-PCS; 2019-05-08)
PROC: 10907ZC Drainage of Amniotic Fluid, Therapeutic from Products of Conception, Via Natural or Artificial Opening (ICD-10-PCS; 2019-05-08)
DX: O69.81X0 Labor and delivery complicated by cord around neck, without compression, not applicable or unspecified (principal); Z3A.39 39 weeks gestation of pregnancy; F41.9 Anxiety disorder, unspecified; F32.9 Major depressive disorder, single episode, unspecified; O99.344 Other mental disorders complicating childbirth; D64.9 Anemia, unspecified; O99.02 Anemia complicating childbirth; Z37.0 Single live birth
CPT/HCPCS: 36415; 36430; 51702; 59025; 59409; 80321; 83550; 85014; 85018; 85027; 86850; 86900; 86901; 86920; 86921; 86922; A9270-GY; J0290; J2300; J2405; J2590; J7030; J7050; J7120; P9016

== ENCOUNTER 2021-01-21 03:14 | Inpatient (IN) | payer OTHER ==
[2021-01-21] MEDS ORDERED: Misoprostol 25 MCG (1/4 of 100 MCG) Tab PO PRN (03:37)
[2021-01-21] MEDS ORDERED: Misoprostol 25 MCG (1/4 of 100 MCG) Tab VAG PRN (03:37)
[2021-01-21] MEDS ORDERED: Terbutaline 1 MG/ML SDV SUBCUT PRN (03:37)
[2021-01-21] MEDS ORDERED: Lidocaine 1% 50 ML MDV INJECT PRN (03:38)
[2021-01-21] MEDS ORDERED: Misoprostol 200 MCG Tab PO PRN (03:38)
[2021-01-21] MEDS ORDERED: Tranexamic Acid 1,000 MG in Sodium Chloride 0.9% 100 ML IV PRN (03:38)
[2021-01-21] MEDS ORDERED: Sodium Chloride 0.9% 2.5 ML Syringe FLUSH PRN (03:38)
[2021-01-21] MEDS ORDERED: Methylergonovine 0.2 MG/1 ML Amp IM PRN (03:38)
[2021-01-21] MEDS ORDERED: Sodium Chloride 0.9% 10 ML Syringe FLUSH PRN (03:38)
[2021-01-21] MEDS ORDERED: Sodium Chloride 0.9% 10 ML SDV IV PRN (03:38)
[2021-01-21] MEDS ORDERED: Ondansetron 4 MG/2 ML SDV IVPUSH PRN (03:38)
[2021-01-21] MEDS ORDERED: Water For Irrigation,Sterile 1,000 ML Container IRR PRN (03:38)
[2021-01-21] MEDS ORDERED: Carboprost Tromethamine 250 MCG/1 ML Amp IM PRN (03:38)
[2021-01-21] MEDS ORDERED: Oxytocin/0.9 % Sodium Chloride 30 UNIT/500 ML BAG IV SCH ×2 (03:45)
[2021-01-21] MEDS: Lactated Ringers 1,000 ML IV SCH ×3 (04:25→08:49)
[2021-01-21] MEDS ORDERED: Ampicillin 2 GM in Sodium Chloride 0.9% 100 ML IV ONE ×2 (04:30)
[2021-01-21] MEDS ORDERED: Sodium Chloride 0.9% 0 ML ONE (04:53)
[2021-01-21] MEDS: Nalbuphine 10 MG/1 ML Vial IVPUSH PRN ×2 (05:35→07:30)
[2021-01-21] MEDS ORDERED: fentaNYL 100 MCG/2 ML SDV ONE (08:11)
[2021-01-21] MEDS ORDERED: Ropivacaine HCl/PF 100 ML ONE (08:12)
[2021-01-21] MEDS ORDERED: Ampicillin 1 GM in Sodium Chloride 0.9% 50 ML IV SCH ×2 (08:30)
--- NOTE | 2021-01-21 08:44 | PCM.PREANE ---
Preanesthetic Assessment - Anesthesia/Transfusion/Family Hx Anesthesia History: Prior Anesthesia Without Reaction Family History of Anesthesia Reaction: No Transfusion History: No Prior Transfusion(s) - Physical Assessment NPO Status Date: 01/21/21 NPO Status Time: 00:05 Height: 1.52 m Weight: 70.579 kg ASA Class: 2 - Lab Values: Laboratory Last Values WBC 10.86 K/uL (4.0-11.0) 01/21/21 03:26 RBC 3.68 M/uL (4.30-5.90) L 01/21/21 03:26 Hgb 6.9 g/dL (12.0-16.0) L 01/21/21 03:26 Hct 24.7 % (36.0-46.0) L 01/21/21 03:26 MCV 67.1 fL (80.0-98.0) L 01/21/21 03:26 MCH 18.8 pg (27.0-32.0) L 01/21/21 03:26 MCHC 27.9 g/dL (31.0-37.0) L 01/21/21 03:26 RDW Std Deviation 46.6 fl (28.0-62.0) 01/21/21 03:26 RDW Coeff of Chago 19 % (11.0-15.0) H 01/21/21 03:26 Plt Count 168 K/uL (150-400) 01/21/21 03:26 Nucleated RBC % 0.0 /100WBC 01/21/21 03:26 Nucleated RBCs # 0 K/uL 01/21/21 03:26 SARS-CoV-2 RNA (AWAIS) NEGATIVE (NEGATIVE) 01/21/21 03:22 Blood Type B POSITIVE 01/21/21 03:26 Antibody Screen NEGATIVE 01/21/21 03:26 - Allergies Allergies/Adverse Reactions: Allergies Allergy/AdvReac Type Severity Reaction Status Date / Time latex Allergy Itching Verified 01/21/21 03:33 - Acknowledgements Anesthesia Type Planned: Epidural Pt an Appropriate Candidate for the Planned Anesthesia: Yes Alternatives and Risks of Anesthesia Discussed w Pt/Guardian: Yes Pt/Guardian Understands and Agrees with Anesthesia Plan: Yes PreAnesthesia Questionnaire - Past Health History Medical/Surgical History: Denies 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: Psychiatric History: Reports: Anxiety, Depression - Infectious Disease History Infectious Disease History: Reports: Chicken Pox - Past Surgical History GI Surgical History: Reports: Hernia, Abdominal - SUBSTANCE USE Tobacco Use Status *Q: Never Tobacco User Second Hand Smoke Exposure: No Recreational Drug Use History: No - HOME MEDS Home Medications: Home Meds Pnv No.95/Ferrous Fum/Folic AC [ Caplet] 1 tab PO DAILY 05/08/19 [History] Sertraline [Zoloft] 150 mg PO DAILY 01/21/21 [History] hydrOXYzine HCL [hydrOXYzine] 1 tab PO ASDIRECTED PRN 01/21/21 [History] - CURRENT (IN HOUSE) MEDS Current Meds: Current Medications Carboprost Tromethamine (Carboprost Tromethamine 250 Mcg/1 Ml Amp) 250 mcg IM ASDIRECTED PRN PRN Reason: Post Hemorrhage Oxytocin/Sodium Chloride (Oxytocin 30 Unit/500 Ml-Ns) 30 unit in 500 mls @ 2 mls/hr IV TITRATE [facility]; Protocol Lactated Ringer's (Ringers, Lactated) 1,000 mls @ 150 mls/hr IV ASDIRECTED SERGO Last Admin: 01/21/21 04:25 Dose: 999 mls/hr Documented by: Oxytocin/Sodium Chloride (Oxytocin 30 Unit/500 Ml-Ns) 30 unit in 500 mls @ 999 mls/hr IV TITRATE [facility] Tranexamic Acid 1,000 mg/ (Sodium Chloride) 110 mls @ 660 mls/hr IV ONETIME PRN PRN Reason: Bleeding Ampicillin Sodium 1 gm/ Sodium (Chloride) 50 mls @ 100 mls/hr IV Q4H [facility] Lidocaine HCl (Lidocaine 1% 50 Ml Mdv) 50 ml INJECT ONETIME PRN PRN Reason: Laceration repair Methylergonovine Maleate (Methylergonovine 0.2 Mg/1 Ml Amp) 0.2 mg IM ASDIRECTED PRN PRN Reason: Post Hemorrhage Misoprostol (Misoprostol 25 Mcg (1/4 Of 100 Mcg) Tab) 25 mcg VAG Q4H PRN PRN Reason: Cervical Ripening Last Admin: 01/21/21 05:09 Dose: 25 mcg Documented by: Misoprostol (Misoprostol 25 Mcg (1/4 Of 100 Mcg) Tab) 25 mcg PO Q4H PRN PRN Reason: Cervical Ripening Last Admin: 01/21/21 05:09 Dose: 25 mcg Documented by: Misoprostol (Misoprostol 200 Mcg Tab) 200 mcg PO ONETIME PRN PRN Reason: Post Hemorrhage Nalbuphine HCl (Nalbuphine 10 Mg/1 Ml Vial) 10 mg IVPUSH Q1H PRN PRN Reason: Pain (severe 7-10) Last Admin: 01/21/21 07:30 Dose: 10 mg Documented by: Ondansetron HCl (Ondansetron 4 Mg/2 Ml Sdv) 4 mg IVPUSH Q6H PRN PRN Reason: Nausea/Vomiting Sodium Chloride (Sodium Chloride 0.9% 10 Ml Syringe) 10 ml FLUSH ASDIRECTED PRN PRN Reason: Keep Vein Open Sodium Chloride (Sodium Chloride 0.9% 2.5 Ml Syringe) 2.5 ml FLUSH ASDIRECTED PRN PRN Reason: Keep Vein Open Sodium Chloride (Sodium Chloride 0.9% 10 Ml Sdv) 10 ml IV ASDIRECTED PRN PRN Reason: IV Use Sterile Water (Water For Irrigation,Sterile 1,000 Ml Container) 1,000 ml IRR ASDIRECTED PRN PRN Reason: delivery Terbutaline Sulfate (Terbutaline 1 Mg/Ml Sdv) 0.25 mg SUBCUT ASDIRECTED PRN PRN Reason: Tacysystole Discontinued Medications Fentanyl (Fentanyl 100 Mcg/2 Ml Sdv) Confirm Administered Dose 100 mcg .ROUTE .STK-MED ONE Stop: 01/21/21 08:12 Ampicillin Sodium 2 gm/ Sodium (Chloride) 100 mls @ 200 mls/hr IV ONETIME ONE Stop: 01/21/21 04:59 Last Admin: 01/21/21 05:04 Dose: 200 mls/hr Documented by: Sodium Chloride (Normal Saline) Confirm Administered Dose 100 mls @ as directed .ROUTE .STK-MED ONE Stop: 01/21/21 04:54 Ropivacaine (Naropin 0.2%) Confirm Administered Dose 100 mls @ as directed .ROUTE .STK-MED ONE Stop: 01/21/21 08:13
[2021-01-21] MEDS ORDERED: ePHEDrine 50 MG/ML SDV IVPUSH PRN (08:50)
[2021-01-21] MEDS ORDERED: Phenylephrine/Normal Saline 100 MCG/ML 10 ML Syringe IVPUSH PRN (08:50)
--- NOTE | 2021-01-21 08:50 | PCM.PRNOTE ---
- Free Text/Narrative Note: Anes Note Patient requests epidural for L&D. Sitting position level L3-L4 midline appraoch. Sterile technique. Chloraprep scrub to lumbar area. Sterile fenestrated drape applied. Epidural space easily achieved single attempt with ease suing FABI technique. FABI at 3 cm. Cath threaded 5 cm with ease. Cath secured a t skin using sterile clear adhesive dressing. 0825 Test 3 cc 1.5% lido with epi negative. 0828 Load 10 cc 0.2% ropivicaine with 1 mcg cc fentanyl in slow divided doses. 0833 Pump started with 90 cc same solution. Rate is 8 cc hr with 6 cc prn bolus q 20 min. Brian well. 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
[2021-01-21] MEDS ORDERED: Sodium Chloride 0.9% 50 ML ONE (08:54)
--- NOTE | 2021-01-21 08:58 | PCM.LDHP ---
L&D History of Present Illness - General Date of Service: 01/21/21 Admit Problem/Dx: Patient Status Order with Admit Dx/Problem 01/21/21 03:15 Patient Status [ADT] Routine Admission Diagnosis/Problem Admission Diagnosis/Problem 01/21/21 08:52 Marylu is a 25 yo at 39+0 weeks gestation (DORON(US) 01/28/2021) that presents to L&D today for elective IOL. Patient seen in office 01/16/2021, RBAs of IOL and mode of cervical ripening (cytotec) discussed in office, consents signed. Reports adequate movement. Denies chrissy vaginal bleeding at this time. B pos, RI, GBS pos; NKDA, plan for ampicillin prophlyaxis in labor. EFW via [place] 7+ lbs. Pertinent medical history includes: Anemia, depression, anxiety. Medications: PNV, sertraline 150 mg PO daily, hydroxyzine 25-50 mg PO PRN. Patient has no other complaints or concerns at this time Source of Information: Patient History Limitations: Reports: No Limitations - History of Present Illness Pain Score: 7 Improves with: Reports: None Worsens with: Reports: None Associated Symptoms: Reports: N - Related Data Allergies/Adverse Reactions: Allergies Allergy/AdvReac Type Severity Reaction Status Date / Time latex Allergy Itching Verified 01/21/21 03:33 Home Medications: Home Meds Pnv No.95/Ferrous Fum/Folic AC [ Caplet] 1 tab PO DAILY 05/08/19 [History] Sertraline [Zoloft] 150 mg PO DAILY 01/21/21 [History] hydrOXYzine HCL [hydrOXYzine] 1 tab PO ASDIRECTED PRN 01/21/21 [History] Past Medical History - Past Health History Medical/Surgical History: Denies 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/Surgical History 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: : 2 Para: 1 LMP (Approximate): Psychiatric History: Reports: Anxiety, Depression - Infectious Disease History Infectious Disease History: Reports: Chicken Pox - Past Surgical History GI Surgical History: Reports: Hernia, Abdominal Social & Family History - Family History Family Medical History: No Pertinent Family History - Tobacco Use Tobacco Use Status *Q: Never Tobacco User Second Hand Smoke Exposure: No - Caffeine Use Caffeine Use: Reports: Coffee, Soda - Recreational Drug Use Recreational Drug Use: No H&P Review of Systems - Review of Systems: Review Of Systems: Comprehensive ROS is negative, except as noted in HPI. General: Reports: No Symptoms HEENT: Reports: No Symptoms Pulmonary: Reports: No Symptoms Cardiovascular: Reports: No Symptoms Gastrointestinal: Reports: No Symptoms Genitourinary: Reports: No Symptoms Musculoskeletal: Reports: No Symptoms Skin: Reports: No Symptoms Psychiatric: Reports: No Symptoms Neurological: Reports: No Symptoms Hematologic/Lymphatic: Reports: No Symptoms Immunologic: Reports: No Symptoms L&D Exam - Exam Exam: See Below - Vital Signs Vital Signs: VSS, afebrile. See flowsheet. Weight: 155 lb 9.6 oz - OB Specific Fundal Height In cm: 38 Contraction Duration (sec): 50-90 Contraction Frequency (min): 1-2 Contraction Intensity: Moderate to Strong Movement: Active Heart Tones: Present Heart Tones per Min: 125 Heart Rate (FHR) Variability: Moderate (6-25 bmp) Presentation: Vertex (via SVE) - Covington Score Covington Score Cervix Position: Midposition [place] Score Consistency: Soft [place] Score Effacement: >80% C[place]ton Score Dilation: 1-2 cm [place]ton Score 's Station: -2 C[place]ton Score Total: 8 - Exam General: Alert, Oriented, Cooperative HEENT: Conjunctiva Clear, Hearing Intact, Mucosa Moist & [place], PERRLA Neck: Supple, Trachea Midline Lungs: Clear to Auscultation, Normal Respiratory Effort Cardiovascular: Regular Rate, Regular Rhythm GI/Abdominal Exam: Normal Bowel Sounds, Soft, Non-Tender, No Organomegaly, No Distention Rectal Exam: Deferred Genitourinary: Normal external exam, Enlarged uterus (Gravid uterus) Back Exam: Normal Inspection, Full Range of Motion Extremities: Normal Inspection, Normal Range of Motion, Non-Tender, No Pedal Edema, Normal Capillary Refill Skin: Warm, Dry, Intact Neurological: Cranial Nerves Intact, Reflexes Equal Bilateral Psychiatric: Alert, Normal Affect, Normal Mood - Patient Data Lab Results Last 24 hrs: Laboratory Results - last 24 hr 01/21/21 01/21/21 01/21/21 Range/Units 03:22 03:26 03:26 WBC 10.86 (4.0-11.0) K/uL RBC 3.68 L (4.30-5.90) M/uL Hgb 6.9 L (12.0-16.0) g/dL Hct 24.7 L (36.0-46.0) % MCV 67.1 L (80.0-98.0) fL MCH 18.8 L (27.0-32.0) pg MCHC 27.9 L (31.0-37.0) g/dL RDW Std Deviation 46.6 (28.0-62.0) fl RDW Coeff of Chago 19 H (11.0-15.0) % Plt Count 168 (150-400) K/uL Nucleated RBC % 0.0 /100WBC Nucleated RBCs # 0 K/uL SARS-CoV-2 RNA ([facility]IS) NEGATIVE (NEGATIVE) Blood Type B POSITIVE Antibody Screen NEGATIVE Result Diagrams: 01/21/21 03:26 - Problem List (1) Encounter for elective induction of labor SNOMED Code(s): 445516245 ICD Code: Z34.90 - ENCNTR FOR SUPRVSN OF NORMAL , UNSP, UNSP TRIMESTER Status: Acute Priority: High Current Visit: Yes (2) 39 weeks gestation of SNOMED Code(s): 02467716 ICD Code: Z3A.39 - 39 WEEKS GESTATION OF Status: Acute Priority: High Current Visit: Yes Problem List Initiated/Reviewed/Updated: Yes Orders Last 24hrs: Active Orders 24 hr Category Date Time Status Patient Status [ADT] Routine ADT 01/21/21 03:15 Active Bedrest Bathroom Privileges [RC] ASDIRECTED Care 01/21/21 03:37 Active Communication Order [RC] ASDIRECTED Care 01/21/21 03:37 Active Communication Order [RC] ASDIRECTED Care 01/21/21 03:37 Active Communication Order [RC] ASDIRECTED Care 01/21/21 03:37 Active May Shower [RC] ASDIRECTED Care 01/21/21 03:38 Active Notify Provider [RC] PRN Care 01/21/21 03:37 Active Notify Provider [RC] PRN Care 01/21/21 03:37 Active Notify Provider [RC] PRN Care 01/21/21 03:38 Active Notify Provider [RC] STAT Care 01/21/21 03:37 Active Oxygen Therapy [RC] ASDIRECTED Care 01/21/21 03:37 Active Up ad Adelita [RC] ASDIRECTED Care 01/21/21 03:38 Active Vital Signs [RC] PER UNIT ROUTINE Care 01/21/21 03:37 Active Regular Diet [DIET] Diet 01/21/21 Breakfast Active RPR (SYPHILIS SERO) W/ RFLX [REF] Routine Lab 01/21/21 03:26 Received Ampicillin 1 gm Med 01/21/21 08:30 Active Sodium Chloride 0.9% [Normal Saline] 50 ml IV Q4H Carboprost Tromethamine [Hemabate DS] Med 01/21/21 03:38 Active 250 mcg IM ASDIRECTED PRN Lactated Ringers [Ringers, Lactated] 1,000 ml Med 01/21/21 03:45 Active IV ASDIRECTED Lidocaine 1% [Xylocaine 1%] Med 01/21/21 03:38 Active 50 ml INJECT ONETIME PRN Methylergonovine [Methergine] Med 01/21/21 03:38 Active 0.2 mg IM ASDIRECTED PRN Nalbuphine [Nubain] Med 01/21/21 03:38 Active 10 mg IVPUSH Q1H PRN Ondansetron [Zofran] Med 01/21/21 03:38 Active 4 mg IVPUSH Q6H PRN Oxytocin/0.9 % Sodium Chloride [Oxytocin 30 Unit/500 ML Med 01/21/21 03:45 Active -NS] 30 unit in 500 ml IV TITRATE Oxytocin/0.9 % Sodium Chloride [Oxytocin 30 Unit/500 ML Med 01/21/21 03:45 Active -NS] 30 unit in 500 ml IV TITRATE Phenylephrine/Normal Saline [Phenylephrine in NS 100 Med 01/21/21 08:50 Ordered MCG/ML] 0.1 mg IVPUSH Q5M PRN Sodium Chloride 0.9% [Normal Saline] Med 01/21/21 03:38 Active 10 ml IV ASDIRECTED PRN Sodium Chloride 0.9% [Saline Flush] Med 01/21/21 03:38 Active 10 ml FLUSH ASDIRECTED PRN Sodium Chloride 0.9% [Saline Flush] Med 01/21/21 03:38 Active 2.5 ml FLUSH ASDIRECTED PRN Terbutaline [Brethine] Med 01/21/21 03:37 Active 0.25 mg SUBCUT ASDIRECTED PRN Tranexamic Acid [Cyklokapron] 1,000 mg Med 01/21/21 03:38 Active Sodium Chloride 0.9% [Normal Saline] 100 ml IV ONETIME Water For Irrigation,Sterile [Sterile Water for Med 01/21/21 03:38 Active Irrigation] 1,000 ml IRR ASDIRECTED PRN ePHEDrine [ePHEDrine sulfate] Med 01/21/21 08:50 Ordered 10 mg IVPUSH Q5M PRN miSOPROStoL [Cytotec] Med 01/21/21 03:38 Active 200 mcg PO ONETIME PRN miSOPROStoL [Cytotec] Med 01/21/21 03:37 Active 25 mcg PO Q4H PRN miSOPROStoL [Cytotec] Med 01/21/21 03:37 Active 25 mcg VAG Q4H PRN Scalp Electrode [WOMSER] Per Unit Routine Oth 01/21/21 03:38 Ordered Medication Administration Instruction [OM.PC] Q3H Oth 01/21/21 03:45 Ordered Peripheral IV Insertion Adult [OM.PC] Routine Oth 01/21/21 03:38 Ordered Resuscitation Status Routine Resus Stat 01/21/21 03:38 Ordered Medication Orders Carboprost Tromethamine (Carboprost Tromethamine 250 Mcg/1 Ml Amp) 250 mcg IM ASDIRECTED PRN PRN Reason: Post Hemorrhage Ephedrine Sulfate (Ephedrine 50 Mg/Ml Sdv) 10 mg IVPUSH Q5M PRN PRN Reason: Hypotension Oxytocin/Sodium Chloride (Oxytocin 30 Unit/500 Ml-Ns) 30 unit in 500 mls @ 2 mls/hr IV TITRATE [facility]; Protocol Lactated Ringer's (Ringers, Lactated) 1,000 mls @ 150 mls/hr IV ASDIRECTED SERGO Last Admin: 01/21/21 08:49 Dose: 150 mls/hr Documented by: Infusion: 01/21/21 08:49 Dose: 999 mls/hr Documented by: Admin: 01/21/21 08:07 Dose: 999 mls/hr Documented by: Infusion: 01/21/21 05:26 Dose: 999 mls/hr Documented by: Admin: 01/21/21 04:25 Dose: 999 mls/hr Documented by: AZRA Oxytocin/Sodium Chloride (Oxytocin 30 Unit/500 Ml-Ns) 30 unit in 500 mls @ 999 mls/hr IV TITRATE [facility] Tranexamic Acid 1,000 mg/ (Sodium Chloride) 110 mls @ 660 mls/hr IV ONETIME PRN PRN Reason: Bleeding Ampicillin Sodium 1 gm/ Sodium (Chloride) 50 mls @ 100 mls/hr IV Q4H [facility] Lidocaine HCl (Lidocaine 1% 50 Ml Mdv) 50 ml INJECT ONETIME PRN PRN Reason: Laceration repair Methylergonovine Maleate (Methylergonovine 0.2 Mg/1 Ml Amp) 0.2 mg IM ASDIRECTED PRN PRN Reason: Post Hemorrhage Misoprostol (Misoprostol 25 Mcg (1/4 Of 100 Mcg) Tab) 25 mcg VAG Q4H PRN PRN Reason: Cervical Ripening Last Admin: 01/21/21 05:09 Dose: 25 mcg Documented by: AZRA Misoprostol (Misoprostol 25 Mcg (1/4 Of 100 Mcg) Tab) 25 mcg PO Q4H PRN PRN Reason: Cervical Ripening Last Admin: 01/21/21 05:09 Dose: 25 mcg Documented by: AZRA Misoprostol (Misoprostol 200 Mcg Tab) 200 mcg PO ONETIME PRN PRN Reason: Post Hemorrhage Nalbuphine HCl (Nalbuphine 10 Mg/1 Ml Vial) 10 mg IVPUSH Q1H PRN PRN Reason: Pain (severe 7-10) Last Admin: 01/21/21 07:30 Dose: 10 mg Documented by: Admin: 01/21/21 05:35 Dose: 10 mg Documented by: AZRA Ondansetron HCl (Ondansetron 4 Mg/2 Ml Sdv) 4 mg IVPUSH Q6H PRN PRN Reason: Nausea/Vomiting Phenylephrine HCl (Phenylephrine/Normal Saline 100 Mcg/Ml 10 Ml Syringe) 0.1 mg IVPUSH Q5M PRN PRN Reason: Hypotension Sodium Chloride (Sodium Chloride 0.9% 10 Ml Syringe) 10 ml FLUSH ASDIRECTED PRN PRN Reason: Keep Vein Open Sodium Chloride (Sodium Chloride 0.9% 2.5 Ml Syringe) 2.5 ml FLUSH ASDIRECTED PRN PRN Reason: Keep Vein Open Sodium Chloride (Sodium Chloride 0.9% 10 Ml Sdv) 10 ml IV ASDIRECTED PRN PRN Reason: IV Use Sterile Water (Water For Irrigation,Sterile 1,000 Ml Container) 1,000 ml IRR ASDIRECTED PRN PRN Reason: delivery Terbutaline Sulfate (Terbutaline 1 Mg/Ml Sdv) 0.25 mg SUBCUT ASDIRECTED PRN PRN Reason: Tacysystole Assessment/Plan Comment:: Admit for observation in anticipation of of term viable . FHR Cat II. Spontaneous contractions noted. Expectant management, reassess cervical dilation ~ 1200 pm. If no change has been make, notify provider. Continuous monitoring. May receive epidural if desired >/= [address] new orders. Dr. Alcaraz notified and agreeable with POC.
[2021-01-21] MEDS ORDERED: Witch Hazel Medicated Pads 40/Jar TOP PRN (13:07)
[2021-01-21] MEDS ORDERED: Acetaminophen 500 MG Tab PO PRN (13:07)
[2021-01-21] MEDS ORDERED: Bisacodyl 10 MG Supp RECTAL PRN (13:07)
[2021-01-21] MEDS ORDERED: oxyCODONE 5 MG Tab PO PRN (13:07)
[2021-01-21] MEDS ORDERED: Ibuprofen 400 MG Tab PO PRN (13:07)
[2021-01-21] MEDS ORDERED: Docusate Sodium 100 MG Cap PO PRN (13:07)
[2021-01-21] MEDS ORDERED: Benzocaine/Menthol 20%-0.5% Spray 78 GM Cannister TOP PRN (13:07)
--- NOTE | 2021-01-21 13:20 | PCM.DEL ---
L & D Note - General Info Date of Service: 01/21/21 Mother's Due Date: 01/28/21 - Delivery Note Labor: Induced by ARM Cervical Ripening Method: Misoprostil Delivery Outcome: Livebirth Delivery Method: Spontaneous Vaginal Delivery-Single Infant Delivery Mode: Spontaneous Presentation: Left Occiput Anterior (PEDRO) Nuchal Cord: None Anesthesia Type: Epidural Amniotic Fluid Description: Clear Episiotomy Type: None Laceration: None Placenta: Intact, Spontaneous Cord: 3 Vessels Estimated Blood Loss: 350 Resuscitation Needed: No : Suctioned, Bulb Syringe, Cathether, Stimulated, Warmed, Candia Used, Warmer Used Provider: Greer Ospina Score 1 min: 1 Score 5 min: 9 Post Delivery Events: Shoulder Dystocia Second Stage Interventions: Reports: Encouragement Given, Pushing Effectively, Pushing, McRobert's Position, Pushing, Pulls Own Legs Back Delivery Comments (Free Text/Narrative):: Marylu is a 25 yo current s/p of viable, term NBF at 39+0 weeks gestation (DORON(US) 01/28/2021) complicated by 1-min shoulder dystocia following elective IOL. B pos, RI, GBS pos; NKDA, adequate ampicillin prophlyaxis in labor. Adequate epidural analgesia. Cephalic presentation. Asynclitic OP position restituted to PEDRO with adequate pushing. head delivered PEDRO spontaneously, body did not follow immediately with the next pushes. Patient reclined to supine position and placed in deep McRobert's position without alleviation with the next pushes and gentle downward traction. Dr. Alcaraz, pediatric speech therapist, and RT called to the bedside at that time. McRobert's position slightly relaxed and firm suprapubic pressure applied towards maternal right by bedside RN, and deep McRobert's position achieved again. body then delivered with the next two pushes upon release of the anterior shoulder with gentle downward traction. NBF placed to maternal abdomen, warmed, dried, stimulated, bulb suctioned without spontaneous cries. Umbilical cord immediately clamped x 2, cut by CNM. NBF brought to the warmer for assessment by RN and pediatric speech therapist. Pitocin bolus commenced, gentle cord traction applied for active third stage management. Placenta birthed ~4 min S/P NBF, intact, Almendarez, 3VC. Perineum inspected, intact. Uterus firm @U-1. Scant vaginal bleeding noted. EBL 350 ml. APGARS 1/9. weight 9 lb 1 oz. - General Info Date of Service: 01/21/21 Admission Dx/Problem (Free Text): Patient Status Order with Admit Dx/Problem 01/21/21 03:15 Patient Status [ADT] Routine Admission Diagnosis/Problem Admission Diagnosis/Problem 01/21/21 08:52 Marylu is a 25 yo at 39+0 weeks gestation (DORON(US) 01/28/2021) that presents to L&D today for elective IOL. Patient seen in office 01/16/2021, RBAs of IOL and mode of cervical ripening (cytotec) discussed in office, consents signed. Reports adequate movement. Denies chrissy vaginal bleeding at this time. B pos, RI, GBS pos; NKDA, plan for ampicillin prophlyaxis in labor. EFW via Leopolds 7+ lbs. Pertinent medical history includes: Anemia, depression, anxiety. Medications: PNV, sertraline 150 mg PO daily, hydroxyzine 25-50 mg PO PRN. Patient has no other complaints or concerns at this time Functional Status: Reports: Pain Controlled, Tolerating Diet, Ambulating, Urinating - Review of Systems General: Reports: No Symptoms HEENT: Reports: No Symptoms Pulmonary: Reports: No Symptoms Cardiovascular: Reports: No Symptoms Gastrointestinal: Reports: No Symptoms Genitourinary: Reports: No Symptoms Musculoskeletal: Reports: No Symptoms Skin: Reports: No Symptoms Neurological: Reports: No Symptoms Psychiatric: Reports: No Symptoms - Patient Data Vitals - Most Recent: VSS, afebrile. See flowsheet. Weight - Most Recent: 155 lb 9.6 oz I&O - Last 24 Hours: Intake & Output 01/20/21 01/21/21 01/21/21 22:59 06:59 14:59 Intake Total 2750 Balance 2750 Lab Results Last 24 Hours: Laboratory Results - last 24 hr 01/21/21 01/21/21 01/21/21 Range/Units 03:22 03:26 03:26 WBC 10.86 (4.0-11.0) K/uL RBC 3.68 L (4.30-5.90) M/uL Hgb 6.9 L (12.0-16.0) g/dL Hct 24.7 L (36.0-46.0) % MCV 67.1 L (80.0-98.0) fL MCH 18.8 L (27.0-32.0) pg MCHC 27.9 L (31.0-37.0) g/dL RDW Std Deviation 46.6 (28.0-62.0) fl RDW Coeff of Chago 19 H (11.0-15.0) % Plt Count 168 (150-400) K/uL Nucleated RBC % 0.0 /100WBC Nucleated RBCs # 0 K/uL SARS-CoV-2 RNA (AWAIS) NEGATIVE (NEGATIVE) Blood Type B POSITIVE Antibody Screen NEGATIVE Med Orders - Current: Current Medications Acetaminophen (Acetaminophen 500 Mg Tab) 500 mg PO Q4H PRN PRN Reason: Pain Acetaminophen (Acetaminophen 500 Mg Tab) 1,000 mg PO Q4H PRN PRN Reason: Pain Benzocaine/Menthol (Benzocaine/Menthol 20%-0.5% [place] 78 Gm Cannister) 78 gm TOP ASDIRECTED PRN PRN Reason: Perineal Comfort Measure Bisacodyl (Bisacodyl 10 Mg Supp) 10 mg RECTAL ONETIME PRN PRN Reason: Constipation Docusate Sodium (Docusate Sodium 100 Mg Cap) 100 mg PO BID PRN PRN Reason: Constipation Emollient Ointment (Lanolin 100% Cream 7 Gm Tube) 0 gm TOP ASDIRECTED PRN PRN Reason: Sore Nipples Ibuprofen (Ibuprofen 400 Mg Tab) 400 mg PO Q4H PRN PRN Reason: Pain Ibuprofen (Ibuprofen 800 Mg Tab) 800 mg PO Q6H PRN PRN Reason: Pain Oxycodone HCl (Oxycodone 5 Mg Tab) 5 mg PO Q2H PRN PRN Reason: Pain Polysaccharide Iron Complex (Iron Polysaccharides Complex 150 Mg Cap) 150 mg PO BID SERGO Witch Cate (Witch Cate Medicated Pads 40/Jar) 1 pad TOP ASDIRECTED PRN PRN Reason: comfort care Discontinued Medications Carboprost Tromethamine (Carboprost Tromethamine 250 Mcg/1 Ml Amp) 250 mcg IM ASDIRECTED PRN PRN Reason: Post Hemorrhage Ephedrine Sulfate (Ephedrine 50 Mg/Ml Sdv) 10 mg IVPUSH Q5M PRN PRN Reason: Hypotension Fentanyl (Fentanyl 100 Mcg/2 Ml Sdv) Confirm Administered Dose 100 mcg .ROUTE .STK-MED ONE Stop: 01/21/21 08:12 Oxytocin/Sodium Chloride (Oxytocin 30 Unit/500 Ml-Ns) 30 unit in 500 mls @ 2 mls/hr IV TITRATE SERGO; Protocol Last Titration: 01/21/21 12:40 Dose: 500 munits/min, 500 mls/hr Documented by: Lactated Ringer's (Ringers, Lactated) 1,000 mls @ 150 mls/hr IV ASDIRECTED SERGO Last Admin: 01/21/21 08:49 Dose: 150 mls/hr Documented by: Oxytocin/Sodium Chloride (Oxytocin 30 Unit/500 Ml-Ns) 30 unit in 500 mls @ 999 mls/hr IV TITRATE SERGO Tranexamic Acid 1,000 mg/ (Sodium Chloride) 110 mls @ 660 mls/hr IV ONETIME PRN PRN Reason: Bleeding Ampicillin Sodium 2 gm/ Sodium (Chloride) 100 mls @ 200 mls/hr IV ONETIME ONE Stop: 01/21/21 04:59 Last Admin: 01/21/21 05:04 Dose: 200 mls/hr Documented by: Ampicillin Sodium 1 gm/ Sodium (Chloride) 50 mls @ 100 mls/hr IV Q4H [facility] Last Admin: 01/21/21 08:55 Dose: 100 mls/hr Documented by: Sodium Chloride (Normal Saline) Confirm Administered Dose 0 mls @ as directed .ROUTE .STK-MED ONE Stop: 01/21/21 04:54 Ropivacaine (Naropin 0.2%) Confirm Administered Dose 100 mls @ as directed .ROUTE .STK-MED ONE Stop: 01/21/21 08:13 Sodium Chloride (Normal Saline) Confirm Administered Dose 50 mls @ as directed .ROUTE .STK-MED ONE Stop: 01/21/21 08:55 Lidocaine HCl (Lidocaine 1% 50 Ml Mdv) 50 ml INJECT ONETIME PRN PRN Reason: Laceration repair Methylergonovine Maleate (Methylergonovine 0.2 Mg/1 Ml Amp) 0.2 mg IM ASD IRECTED PRN PRN Reason: Post Hemorrhage Misoprostol (Misoprostol 25 Mcg (1/4 Of 100 Mcg) Tab) 25 mcg VAG Q4H PRN PRN Reason: Cervical Ripening Last Admin: 01/21/21 05:09 Dose: 25 mcg Documented by: Misoprostol (Misoprostol 25 Mcg (1/4 Of 100 Mcg) Tab) 25 mcg PO Q4H PRN PRN Reason: Cervical Ripening Last Admin: 01/21/21 05:09 Dose: 25 mcg Documented by: Misoprostol (Misoprostol 200 Mcg Tab) 200 mcg PO ONETIME PRN PRN Reason: Post Hemorrhage Nalbuphine HCl (Nalbuphine 10 Mg/1 Ml Vial) 10 mg IVPUSH Q1H PRN PRN Reason: Pain (severe 7-10) Last Admin: 01/21/21 07:30 Dose: 10 mg Documented by: Ondansetron HCl (Ondansetron 4 Mg/2 Ml Sdv) 4 mg IVPUSH Q6H PRN PRN Reason: Nausea/Vomiting Phenylephrine HCl (Phenylephrine/Normal Saline 100 Mcg/Ml 10 Ml Syringe) 0.1 mg IVPUSH Q5M PRN PRN Reason: Hypotension Sodium Chloride (Sodium Chloride 0.9% 10 Ml Syringe) 10 ml FLUSH ASDIRECTED PRN PRN Reason: Keep Vein Open Sodium Chloride (Sodium Chloride 0.9% 2.5 Ml Syringe) 2.5 ml FLUSH ASDIRECTED PRN PRN Reason: Keep Vein Open Sodium Chloride (Sodium Chloride 0.9% 10 Ml Sdv) 10 ml IV ASDIRECTED PRN PRN Reason: IV Use Sterile Water (Water For Irrigation,Sterile 1,000 Ml Container) 1,000 ml IRR ASDIRECTED PRN PRN Reason: delivery Terbutaline Sulfate (Terbutaline 1 Mg/Ml Sdv) 0.25 mg SUBCUT ASDIRECTED PRN PRN Reason: Tacysystole - Exam General: Alert, Oriented, Cooperative, No Acute Distress HEENT: Pupils Equal, Mucous Membr. Moist/[place] Neck: Supple Lungs: Clear to Auscultation, Normal Respiratory Effort Cardiovascular: Regular Rate, Regular Rhythm GI/Abdominal Exam: Normal Bowel Sounds, Soft, Non-Tender, No Organomegaly, No Distention (Female) Exam: Normal External Exam, Enlarged Uterus ( uterus, firm U-1), Vaginal Bleeding (Scant rubra lochia, no clots.) Back Exam: Normal Inspection, Full Range of Motion Extremities: Normal Inspection, Normal Range of Motion, Non-Tender, No Pedal Edema, Normal Capillary Refill Skin: Warm, Dry, Intact Neurological: No New Focal Deficit (BLE epidural analgesia) Psy/Mental Status: Alert, Normal Affect, Normal Mood - Problem List & Annotations (1) (spontaneous vaginal delivery) SNOMED Code(s): 642988773 Code(s): O80 - ENCOUNTER FOR FULL-TERM UNCOMPLICATED DELIVERY Status: Acute Priority: High Current Visit: Yes (2) Shoulder dystocia, delivered SNOMED Code(s): 382621669, 068917243 Code(s): O66.0 - OBSTRUCTED LABOR DUE TO SHOULDER DYSTOCIA Status: Acute Priority: High Current Visit: Yes (3) Lactating mother SNOMED Code(s): 555759288, 917031643 Code(s): Z39.1 - ENCOUNTER FOR CARE AND EXAMINATION OF LACTATING MOTHER Status: Acute Priority: High Current Visit: Yes - Problem List Review Problem List Initiated/Reviewed/Updated: Yes - My Orders Last 24 Hours: My Active Orders 01/21/21 03:26 RPR (SYPHILIS SERO) W/ RFLX [REF] Routine 01/21/21 13:07 Patient Status [ADT] Routine May Shower [RC] ASDIRECTED Up ad Adelita [RC] ASDIRECTED Vital Signs [RC] PER UNIT ROUTINE Acetaminophen [Tylenol Extra Strength] 1,000 mg PO Q4H PRN Acetaminophen [Tylenol Extra Strength] 500 mg PO Q4H PRN Benzocaine/Menthol [Dermoplast Pain Relief 20%-0.5% [place]] 78 gm TOP ASDIRECTED PRN Docusate Sodium [Colace] 100 mg PO BID PRN Ibuprofen [Motrin] 400 mg PO Q4H PRN Ibuprofen [Motrin] 800 mg PO Q6H PRN Lanolin [Lansinoh HPA] See Dose Instructions TOP ASDIRECTED PRN bisacodyL [Dulcolax] 10 mg RECTAL ONETIME PRN oxyCODONE 5 mg PO Q2H PRN witch Cate [Tucks] 1 pad TOP ASDIRECTED PRN Assess Lochia [WOMSER] Per Unit Routine Assess Uterine Involution [WOMSER] Per Unit Routine Ice Therapy [OM.PC] Per Unit Routine Perineal Care [OM.PC] Per Unit Routine Peripheral IV Discontinue [OM.PC] Routine Sitz Bath [OM.PC] Per Unit Routine Resuscitation Status Routine 01/21/21 13:09 Cooling Warming Measures [RC] ASDIRECTED 01/21/21 Dinner Regular Diet [DIET] 01/21/21 21:00 Iron Polysaccharides Complex [Ferrex 150] 150 mg PO BID 01/22/21 05:00 HEMOGLOBIN/HEMATOCRIT,HH [HEME] Routine - Plan Plan:: Admit inpatient to unit S/P of term, viable NBF. Regular diet as tolerated. Plan to D/C epidural now, may ambulate with assistance in 2-4 hours or when sensation returns. If patient does not void within 6 hours S/P delivery, notify provider. support may be provided if desired or needed. Baseline hemoglobin 6.9. Iron supplementation BID x 4 weeks started, then decrease to once daily thereafter. H/H in am. See new orders. Dr. Alcaraz notified and agreeable with POC.
[2021-01-21] MEDS: Ibuprofen 800 MG Tab PO PRN ×2 (14:39→20:30)
[2021-01-21] MEDS ORDERED: Iron Polysaccharides Complex 150 MG Cap ONE (17:08)
[2021-01-21] MEDS: Iron Polysaccharides Complex 150 MG Cap PO SCH ×2 (17:10→20:30)
[2021-01-21] MEDS: Docusate Sodium 100 MG Cap PO SCH (20:29)
[2021-01-21] MEDS: Acetaminophen 500 MG Tab PO PRN (20:29)
--- NOTE | 2021-01-22 07:49 | PCM48HPAN ---
Post Anesthesia Note - EVALUATION WITHIN 48HRS OF ANESTHETIC Vital Signs in Normal Range: Yes Patient Participated in Evaluation: Yes Respiratory Function Stable: Yes Airway Patent: Yes Cardiovascular Function Stable: Yes Hydration Status Stable: Yes Pain Control Satisfactory: Yes Nausea and Vomiting Control Satisfactory: Yes Mental Status Recovered: Yes Vital Signs: Last Vital Signs Temp 35.7 C L 01/22/21 04:04 Pulse 88 01/22/21 04:04 Resp 16 01/22/21 04:04 BP 117/71 01/22/21 04:04 Pulse Ox 97 01/22/21 04:04 - COMMENTS/OBSERVATIONS Free Text/Narrative:: Patient states back hurts today. Denies headache or any other complaints.
[2021-01-22] MEDS: Acetaminophen 500 MG Tab PO PRN ×3 (08:04→20:17)
[2021-01-22] MEDS: Docusate Sodium 100 MG Cap PO SCH ×2 (08:04→21:55)
[2021-01-22] MEDS: Iron Polysaccharides Complex 150 MG Cap PO SCH ×2 (08:04→21:55)
[2021-01-22] MEDS: Ibuprofen 800 MG Tab PO PRN ×3 (08:05→21:55)
[2021-01-22] MEDS: Lanolin 100% Cream 7 GM Tube TOP PRN (09:52)
[2021-01-22] MEDS ORDERED: Sodium Chloride 0.9% 250 ML ONE (14:57)
--- NOTE | 2021-01-22 17:50 | PCM.PNPP ---
- General Info Date of Service: 01/22/21 Admission Dx/Problem (Free Text): Patient Status Order with Admit Dx/Problem 01/21/21 03:15 Patient Status [ADT] Routine Admission Diagnosis/Problem Admission Diagnosis/Problem 01/21/21 08:52 Marylu is a 25 yo at 39+0 weeks gestation (DORON() 01/28/2021) that presents to L&D today for elective IOL. Patient seen in office 01/16/2021, RBAs of IOL and mode of cervical ripening (cytotec) discussed in office, consents signed. Reports adequate movement. Denies chrissy vaginal bleeding at this time. B pos, RI, GBS pos; NKDA, plan for ampicillin prophlyaxis in labor. EFW via Leopolds 7+ lbs. Pertinent medical history includes: Anemia, depression, anxiety. Medications: PNV, sertraline 150 mg PO daily, hydroxyzine 25-50 mg PO PRN. Patient has no other complaints or concerns at this time Subjective Update: Patient appears drowsy and tired. She reports mod-minimal bleeding. Lighheadedness when she ambulates. Denies nausea, vomiting. Pain is well controlled Functional Status: Reports: Pain Controlled - Review of Systems General: Reports: No Symptoms HEENT: Reports: No Symptoms Pulmonary: Reports: No Symptoms Cardiovascular: Reports: No Symptoms Gastrointestinal: Reports: No Symptoms Genitourinary: Reports: No Symptoms Musculoskeletal: Reports: No Symptoms Skin: Reports: No Symptoms Neurological: Reports: No Symptoms Psychiatric: Reports: No Symptoms - General Info Date of Service: 01/22/21 - Patient Data Vital Signs - Most Recent: Last Vital Signs Temp 97.4 F 01/22/21 17:34 Pulse 79 01/22/21 17:34 Resp 16 01/22/21 17:34 BP 119/56 L 01/22/21 17:34 Pulse Ox 99 01/22/21 08:10 Weight - Most Recent: 70.579 kg I&O - Last 24 Hours: Intake & Output 01/22/21 01/22/21 01/22/21 06:59 14:59 22:59 Intake Total 450 350 Balance 450 350 Lab Results - Last 24 Hours: Laboratory Results - last 24 hr 01/21/21 01/21/21 01/22/21 Range/Units 03:26 03:26 05:10 Hgb 6.2 L (12.0-16.0) g/dL Hct 22.1 L (36.0-46.0) % RPR Non-Reac (Non-Reac) Blood Type B POSITIVE Antibody Screen NEGATIVE Crossmatch See Detail Med Orders - Current: Current Medications Acetaminophen (Acetaminophen 500 Mg Tab) 500 mg PO Q4H PRN PRN Reason: Pain Acetaminophen (Acetaminophen 500 Mg Tab) 1,000 mg PO Q4H PRN PRN Reason: Pain Last Admin: 01/22/21 15:22 Dose: 1,000 mg Documented by: Benzocaine/Menthol (Benzocaine/Menthol 20%-0.5% [place] 78 Gm Cannister) 78 gm TOP ASDIRECTED PRN PRN Reason: Perineal Comfort Measure Last Admin: 01/21/21 14:43 Dose: 78 gm Documented by: Bisacodyl (Bisacodyl 10 Mg Supp) 10 mg RECTAL ONETIME PRN PRN Reason: Constipation Docusate Sodium (Docusate Sodium 100 Mg Cap) 100 mg PO BID [facility] Last Admin: 01/22/21 08:04 Dose: 100 mg Documented by: Emollient Ointment (Lanolin 100% Cream 7 Gm Tube) 0 gm TOP ASDIRECTED PRN PRN Reason: Sore Nipples Last Admin: 01/22/21 09:52 Dose: 7 gram Documented by: Ibuprofen (Ibuprofen 400 Mg Tab) 400 mg PO Q4H PRN PRN Reason: Pain Ibuprofen (Ibuprofen 800 Mg Tab) 800 mg PO Q6H PRN PRN Reason: Pain Last Admin: 01/22/21 15:23 Dose: 800 mg Documented by: Oxycodone HCl (Oxycodone 5 Mg Tab) 5 mg PO Q2H PRN PRN Reason: Pain Last Admin: 01/21/21 17:10 Dose: 5 mg Documented by: Polysaccharide Iron Complex (Iron Polysaccharides Complex 150 Mg Cap) 150 mg PO BID [facility] Last Admin: 01/22/21 08:04 Dose: 150 mg Documented by: Ros Esposito (Ros Esposito Medicated Pads 40/Jar) 1 pad TOP ASDIRECTED PRN PRN Reason: comfort care Last Admin: 01/21/21 14:42 Dose: 1 pad Documented by: Discontinued Medications Carboprost Tromethamine (Carboprost Tromethamine 250 Mcg/1 Ml Amp) 250 mcg IM ASDIRECTED PRN PRN Reason: Post Hemorrhage Docusate Sodium (Docusate Sodium 100 Mg Cap) 100 mg PO BID PRN PRN Reason: Constipation Ephedrine Sulfate (Ephedrine 50 Mg/Ml Sdv) 10 mg IVPUSH Q5M PRN PRN Reason: Hypotension Fentanyl (Fentanyl 100 Mcg/2 Ml Sdv) Confirm Administered Dose 100 mcg .ROUTE .STK-MED ONE Stop: 01/21/21 08:12 Oxytocin/Sodium Chloride (Oxytocin 30 Unit/500 Ml-Ns) 30 unit in 500 mls @ 2 mls/hr IV TITRATE SERGO; Protocol Last Titration: 01/21/21 12:40 Dose: 500 munits/min, 500 mls/hr Documented by: Lactated Ringer's (Ringers, Lactated) 1,000 mls @ 150 mls/hr IV ASDIRECTED SERGO Last Admin: 01/21/21 08:49 Dose: 150 mls/hr Documented by: Oxytocin/Sodium Chloride (Oxytocin 30 Unit/500 Ml-Ns) 30 unit in 500 mls @ 999 mls/hr IV TITRATE SERGO Tranexamic Acid 1,000 mg/ (Sodium Chloride) 110 mls @ 660 mls/hr IV ONETIME PRN PRN Reason: Bleeding Ampicillin Sodium 2 gm/ Sodium (Chloride) 100 mls @ 200 mls/hr IV ONETIME ONE Stop: 01/21/21 04:59 Last Admin: 01/21/21 05:04 Dose: 200 mls/hr Documented by: Ampicillin Sodium 1 gm/ Sodium (Chloride) 50 mls @ 100 mls/hr IV Q4H [facility] Last Admin: 01/21/21 08:55 Dose: 100 mls/hr Documented by: Sodium Chloride (Normal Saline) Confirm Administered Dose 0 mls @ as directed .ROUTE .STK-MED ONE Stop: 01/21/21 04:54 Ropivacaine (Naropin 0.2%) Confirm Administered Dose 100 mls @ as directed .ROUTE .STK-MED ONE Stop: 01/21/21 08:13 Sodium Chloride (Normal Saline) Confirm Administered Dose 50 mls @ as directed .ROUTE .STK-MED ONE Stop: 01/21/21 08:55 Sodium Chloride (Normal Saline (Advbag)) Confirm Administered Dose 250 mls @ as directed .ROUTE .[employer] ONE Stop: 01/22/21 14:58 Lidocaine HCl (Lidocaine 1% 50 Ml Mdv) 50 ml INJECT ONETIME PRN PRN Reason: Laceration repair Methylergonovine Maleate (Methylergonovine 0.2 Mg/1 Ml Amp) 0.2 mg IM ASDIRECTED PRN PRN Reason: Post Hemorrhage Misoprostol (Misoprostol 25 Mcg (1/4 Of 100 Mcg) Tab) 25 mcg VAG Q4H PRN PRN Reason: Cervical Ripening Last Admin: 01/21/21 05:09 Dose: 25 mcg Documented by: Misoprostol (Misoprostol 25 Mcg (1/4 Of 100 Mcg) Tab) 25 mcg PO Q4H PRN PRN Reason: Cervical Ripening Last Admin: 01/21/21 05:09 Dose: 25 mcg Documented by: Misoprostol (Misoprostol 200 Mcg Tab) 200 mcg PO ONETIME PRN PRN Reason: Post Hemorrhage Nalbuphine HCl (Nalbuphine 10 Mg/1 Ml Vial) 10 mg IVPUSH Q1H PRN PRN Reason: Pain (severe 7-10) Last Admin: 01/21/21 07:30 Dose: 10 mg Documented by: Ondansetron HCl (Ondansetron 4 Mg/2 Ml Sdv) 4 mg IVPUSH Q6H PRN PRN Reason: Nausea/Vomiting Phenylephrine HCl (Phenylephrine/Normal Saline 100 Mcg/Ml 10 Ml Syringe) 0.1 mg IVPUSH Q5M PRN PRN Reason: Hypotension Polysaccharide Iron Complex (Iron Polysaccharides Complex 150 Mg Cap) Confirm Administered Dose 150 mg .ROUTE .[employer] ONE Stop: 01/21/21 17:09 Sodium Chloride (Sodium Chloride 0.9% 10 Ml Syringe) 10 ml FLUSH ASDIRECTED PRN PRN Reason: Keep Vein Open Sodium Chloride (Sodium Chloride 0.9% 2.5 Ml Syringe) 2.5 ml FLUSH ASDIRECTED PRN PRN Reason: Keep Vein Open Sodium Chloride (Sodium Chloride 0.9% 10 Ml Sdv) 10 ml IV ASDIRECTED PRN PRN Reason: IV Use Sterile Water (Water For Irrigation,Sterile 1,000 Ml Container) 1,000 ml IRR ASDIRECTED PRN PRN Reason: delivery Terbutaline Sulfate (Terbutaline 1 Mg/Ml Sdv) 0.25 mg SUBCUT ASDIRECTED PRN PRN Reason: Tacysystole - Infant Interaction Support Person: Significant Other - Recovery Exam Fundal Tone: Firm, Firms with Massage Fundal Level: At Umbilicus Fundal Placement: Midline Lochia Amount: Scant, Small Lochia Color: Rubra/Red Perineum Description: Intact, Minimal Bruising/Swelling Other Perinuem Description: Ice pack provided Episiotomy/Laceration: None Bladder Status: Voiding Urinary Elimination: Voided - Exam General: Alert, Oriented Neck: Supple Lungs: Normal Respiratory Effort Cardiovascular: Regular Rhythm GI/Abdominal Exam: Soft, Non-Tender Extremities: Normal Inspection Neurological: No New Focal Deficit Psy/Mental Status: Alert, Normal Affect, Normal Mood - Problem List & Annotations (1) (normal spontaneous vaginal delivery) SNOMED Code(s): 37709393, 551446832 Code(s): O80 - ENCOUNTER FOR FULL-TERM UNCOMPLICATED DELIVERY Status: Acute Priority: High Current Visit: Yes - Problem List Review Problem List Initiated/Reviewed/Updated: Yes - My Orders Last 24 Hours: My Active Orders 01/22/21 12:05 Transfuse RBC [Transfuse Red Blood Cells] [COMM] Routine 01/22/21 14:07 RED BLOOD CELLS LP [BBK] Stat - Assessment Assessment:: PPD#1 Patient is anemic (hgb 6.2) and symptomatic. Has not been compliant with her iron supplement during . Agreeable to blood transfusion - Plan Plan:: Type and screen obtained. Plan to transfuse 2 PRBC
[2021-01-23] MEDS: Docusate Sodium 100 MG Cap PO SCH (09:29)
[2021-01-23] MEDS: Iron Polysaccharides Complex 150 MG Cap PO SCH (09:29)
[2021-01-23] MEDS: Lanolin 100% Cream 7 GM Tube TOP PRN (09:31)
--- NOTE | 2021-01-23 11:37 | PCM.DCSUM1 ---
Discharge Summary - Hospital Course Free Text/Narrative:: Discharge home with infant. Follow up in the clinic in 6 weeks for routine visit; sooner, if needed. Diagnosis: Stroke: No Modified [place] Scale: No Symptoms at All Modified [place] Scale Score: 0 - Discharge Data Discharge Date: 01/23/21 Discharge Disposition: Home, Self-Care 01 Condition: Good - Referral to Home Health Primary Care Physician: PCP None - Patient Instructions Diet: Regular Diet as Tolerated, Drink 8-10+ Glasses/Day Activity: As Tolerated, No Strenuous Activities, Rest and Relax Today Driving: May Drive Today Showering/Bathing: May Shower Notify Provider of: Fever, Increased Pain, Swelling and Redness, Drainage, Nausea and/or Vomiting - Discharge Plan *PRESCRIPTION DRUG MONITORING PROGRAM REVIEWED*: Not Applicable *COPY OF PRESCRIPTION DRUG MONITORING REPORT IN PATIENT OFELIA: Not Applicable Prescriptions/Med Rec: Ibuprofen [Motrin] 800 mg PO Q6H PRN #90 tablet PRN Reason: Pain Home Medications: Home Meds Pnv No.95/Ferrous Fum/Folic AC [ Caplet] 1 tab PO DAILY 05/08/19 [History] Sertraline [Zoloft] 150 mg PO DAILY 01/21/21 [History] hydrOXYzine HCL [hydrOXYzine] 1 tab PO ASDIRECTED PRN 01/21/21 [History] Ibuprofen [Motrin] 800 mg PO Q6H PRN #90 tablet 01/23/21 [Rx] Oxygen Therapy Mode: Room Air Referrals: Michelle Gross CNM [Mid-] - 03/06/21 9:30 am - Discharge Summary/Plan Comment DC Time >30 min.: Yes - General Info Date of Service: 01/23/21 Admission Dx/Problem (Free Text: Patient Status Order with Admit Dx/Problem 01/21/21 03:15 Patient Status [ADT] Routine Admission Diagnosis/Problem Admission Diagnosis/Problem 01/21/21 08:52 Marylu is a 25 yo at 39+0 weeks gestation (DORON(US) 01/28/2020) that presents to L&D today for elective IOL. Patient seen in office 01/16/2021, RBAs of IOL and mode of cervical ripening (cytotec) discussed in office, consents signed. Reports adequate movement. Denies chrissy vaginal bleeding at this time. B pos, RI, GBS pos; NKDA, plan for ampicillin prophlyaxis in labor. EFW via [place] 7+ lbs. Pertinent medical history includes: Anemia, depression, anxiety. Medications: PNV, sertraline 150 mg PO daily, hydroxyzine 25-50 mg PO PRN. Patient has no other complaints or concerns at this time Functional Status: Reports: Pain Controlled, Tolerating Diet, Ambulating, Urinating - Review of Systems General: Reports: No Symptoms HEENT: Reports: No Symptoms Pulmonary: Reports: No Symptoms Cardiovascular: Reports: No Symptoms Gastrointestinal: Reports: No Symptoms Genitourinary: Reports: No Symptoms Musculoskeletal: Reports: No Symptoms Skin: Reports: No Symptoms Neurological: Reports: No Symptoms Psychiatric: Reports: No Symptoms - Patient Data Vitals - Most Recent: Last Vital Signs Temp 97.6 F 01/23/21 07:39 Pulse 71 01/23/21 07:39 Resp 16 01/23/21 07:39 BP 107/58 L 01/23/21 07:39 Pulse Ox 97 01/23/21 07:39 Weight - Most Recent: 155 lb 9.6 oz I&O - Last 24 hours: Intake & Output 01/22/21 01/23/21 01/23/21 22:59 06:59 14:59 Intake Total 350 Balance 350 Lab Results - Last 24 hrs: Laboratory Results - last 24 hr 01/21/21 01/21/21 01/23/21 Range/Units 03:26 03:26 06:44 Hgb 8.6 L (12.0-16.0) g/dL Hct 28.0 L (36.0-46.0) % RPR Non-Reac (Non-Reac) Blood Type B POSITIVE Antibody Screen NEGATIVE Crossmatch See Detail Med Orders - Current: Current Medications Acetaminophen (Acetaminophen 500 Mg Tab) 500 mg PO Q4H PRN PRN Reason: Pain Acetaminophen (Acetaminophen 500 Mg Tab) 1,000 mg PO Q4H PRN PRN Reason: Pain Last Admin: 01/22/21 20:17 Dose: 1,000 mg Documented by: Benzocaine/Menthol (Benzocaine/Menthol 20%-0.5% [place] 78 Gm Cannister) 78 gm TOP ASDIRECTED PRN PRN Reason: Perineal Comfort Measure Last Admin: 01/21/21 14:43 Dose: 78 gm Documented by: Bisacodyl (Bisacodyl 10 Mg Supp) 10 mg RECTAL ONETIME PRN PRN Reason: Constipation Docusate Sodium (Docusate Sodium 100 Mg Cap) 100 mg PO BID [facility] Last Admin: 01/23/21 09:29 Dose: 100 mg Documented by: Emollient Ointment (Lanolin 100% Cream 7 Gm Tube) 0 gm TOP ASDIRECTED PRN PRN Reason: Sore Nipples Last Admin: 01/23/21 09:31 Dose: 1 gram Documented by: Ibuprofen (Ibuprofen 400 Mg Tab) 400 mg PO Q4H PRN PRN Reason: Pain Ibuprofen (Ibuprofen 800 Mg Tab) 800 mg PO Q6H PRN PRN Reason: Pain Last Admin: 01/22/21 21:55 Dose: 800 mg Documented by: Oxycodone HCl (Oxycodone 5 Mg Tab) 5 mg PO Q2H PRN PRN Reason: Pain Last Admin: 01/21/21 17:10 Dose: 5 mg Documented by: Polysaccharide Iron Complex (Iron Polysaccharides Complex 150 Mg Cap) 150 mg PO BID [facility] Last Admin: 01/23/21 09:29 Dose: 150 mg Documented by: Ros Esposito (Ros Esposito Medicated Pads 40/Jar) 1 pad TOP ASDIRECTED PRN PRN Reason: comfort care Last Admin: 01/21/21 14:42 Dose: 1 pad Documented by: Discontinued Medications Carboprost Tromethamine (Carboprost Tromethamine 250 Mcg/1 Ml Amp) 250 mcg IM ASDIRECTED PRN PRN Reason: Post Hemorrhage Docusate Sodium (Docusate Sodium 100 Mg Cap) 100 mg PO BID PRN PRN Reason: Constipation Ephedrine Sulfate (Ephedrine 50 Mg/Ml Sdv) 10 mg IVPUSH Q5M PRN PRN Reason: Hypotension Fentanyl (Fentanyl 100 Mcg/2 Ml Sdv) Confirm Administered Dose 100 mcg .ROUTE .STK-MED ONE Stop: 01/21/21 08:12 Oxytocin/Sodium Chloride (Oxytocin 30 Unit/500 Ml-Ns) 30 unit in 500 mls @ 2 mls/hr IV TITRATE [facility]; Protocol Last Titration: 01/21/21 12:40 Dose: 500 munits/min, 500 mls/hr Documented by: Lactated Ringer's (Ringers, Lactated) 1,000 mls @ 150 mls/hr IV ASDIRECTED [facility] Last Admin: 01/21/21 08:49 Dose: 150 mls/hr Documented by: Oxytocin/Sodium Chloride (Oxytocin 30 Unit/500 Ml-Ns) 30 unit in 500 mls @ 999 mls/hr IV TITRATE [facility] Tranexamic Acid 1,000 mg/ (Sodium Chloride) 110 mls @ 660 mls/hr IV ONETIME PRN PRN Reason: Bleeding Ampicillin Sodium 2 gm/ Sodium (Chloride) 100 mls @ 200 mls/hr IV ONETIME ONE Stop: 01/21/21 04:59 Last Admin: 01/21/21 05:04 Dose: 200 mls/hr Documented by: Ampicillin Sodium 1 gm/ Sodium (Chloride) 50 mls @ 100 mls/hr IV Q4H [facility] Last Admin: 01/21/21 08:55 Dose: 100 mls/hr Documented by: Sodium Chloride (Normal Saline) Confirm Administered Dose 0 mls @ as directed .ROUTE .STK-MED ONE Stop: 01/21/21 04:54 Ropivacaine (Naropin 0.2%) Confirm Administered Dose 100 mls @ as directed .ROUTE .STK-MED ONE Stop: 01/21/21 08:13 Sodium Chloride (Normal Saline) Confirm Administered Dose 50 mls @ as directed .ROUTE .STK-MED ONE Stop: 01/21/21 08:55 Sodium Chloride (Normal Saline (Advbag)) Confirm Administered Dose 250 mls @ as directed .ROUTE .STK-MED ONE Stop: 01/22/21 14:58 Lidocaine HCl (Lidocaine 1% 50 Ml Mdv) 50 ml INJECT ONETIME PRN PRN Reason: Laceration repair Methylergonovine Maleate (Methylergonovine 0.2 Mg/1 Ml Amp) 0.2 mg IM ASDIRECTED PRN PRN Reason: Post Hemorrhage Misoprostol (Misoprostol 25 Mcg (1/4 Of 100 Mcg) Tab) 25 mcg VAG Q4H PRN PRN Reason: Cervical Ripening Last Admin: 01/21/21 05:09 Dose: 25 mcg Documented by: Misoprostol (Misoprostol 25 Mcg (1/4 Of 100 Mcg) Tab) 25 mcg PO Q4H PRN PRN Reason: Cervical Ripening Last Admin: 01/21/21 05:09 Dose: 25 mcg Documented by: Misoprostol (Misoprostol 200 Mcg Tab) 200 mcg PO ONETIME PRN PRN Reason: Post Hemorrhage Nalbuphine HCl (Nalbuphine 10 Mg/1 Ml Vial) 10 mg IVPUSH Q1H PRN PRN Reason: Pain (severe 7-10) Last Admin: 01/21/21 07:30 Dose: 10 mg Documented by: Ondansetron HCl (Ondansetron 4 Mg/2 Ml Sdv) 4 mg IVPUSH Q6H PRN PRN Reason: Nausea/Vomiting Phenylephrine HCl (Phenylephrine/Normal Saline 100 Mcg/Ml 10 Ml Syringe) 0.1 mg IVPUSH Q5M PRN PRN Reason: Hypotension Polysaccharide Iron Complex (Iron Polysaccharides Complex 150 Mg Cap) Confirm Administered Dose 150 mg .ROUTE .[facility] ONE Stop: 01/21/21 17:09 Sodium Chloride (Sodium Chloride 0.9% 10 Ml Syringe) 10 ml FLUSH ASDIRECTED PRN PRN Reason: Keep Vein Open Sodium Chloride (Sodium Chloride 0.9% 2.5 Ml Syringe) 2.5 ml FLUSH ASDIRECTED PRN PRN Reason: Keep Vein Open Sodium Chloride (Sodium Chloride 0.9% 10 Ml Sdv) 10 ml IV ASDIRECTED PRN PRN Reason: IV Use Sterile Water (Water For Irrigation,Sterile 1,000 Ml Container) 1,000 ml IRR ASDIRECTED PRN PRN Reason: delivery Terbutaline Sulfate (Terbutaline 1 Mg/Ml Sdv) 0.25 mg SUBCUT ASDIRECTED PRN PRN Reason: Tacysystole - Exam General: Reports: Alert, Oriented, Cooperative, No Acute Distress Lungs: Reports: Normal Respiratory Effort Cardiovascular: Reports: Regular Rate, Regular Rhythm (Female) Exam: Deferred Rectal (Female) Exam: Deferred Back Exam: Reports: Normal Inspection Extremities: Normal Inspection, Normal Range of Motion, Non-Tender, No Pedal Edema, Normal Capillary Refill Skin: Reports: Warm, Dry, Intact Neurological: Reports: No New Focal Deficit, Normal Speech, Normal Tone, Strength Equal Bilateral, Sensation Intact Psy/Mental Status: Reports: Alert, Normal Affect, Normal Mood
[2021-01-23] MEDS: Ibuprofen 800 MG Tab PO PRN (12:19)
== END 2021-01-23 14:20 | disposition home or self-care (01) | DRG 806 ==
LOC: MW.OBCHECK 03:14 → MW.OB 03:15 → OBSVTOIN 12:40 → MW.OB 16:10
PROVIDERS: ADMIT Obstetrics & Gynecology; ATTEND Obstetrics & Gynecology
PROC: 10E0XZZ Delivery of Products of Conception, External Approach (ICD-10-PCS; principal; 2021-01-21)
PROC: 10907ZC Drainage of Amniotic Fluid, Therapeutic from Products of Conception, Via Natural or Artificial Opening (ICD-10-PCS; 2021-01-21)
PROC: 3E0P7VZ Introduction of Hormone into Female Reproductive, Via Natural or Artificial Opening (ICD-10-PCS; 2021-01-21)
PROC: 3E0R3BZ Introduction of Anesthetic Agent into Spinal Canal, Percutaneous Approach (ICD-10-PCS; 2021-01-21)
PROC: 00HU33Z Insertion of Infusion Device into Spinal Canal, Percutaneous Approach (ICD-10-PCS; 2021-01-21)
PROC: 30233N1 Transfusion of Nonautologous Red Blood Cells into Peripheral Vein, Percutaneous Approach (ICD-10-PCS; 2021-01-22)
DX: O66.0 Obstructed labor due to shoulder dystocia (principal); D62 Acute posthemorrhagic anemia; Z37.0 Single live birth; O99.344 Other mental disorders complicating childbirth; F32.9 Major depressive disorder, single episode, unspecified; F41.9 Anxiety disorder, unspecified; Z20.822 Contact with and (suspected) exposure to COVID-19; O99.02 Anemia complicating childbirth; Z91.040 Latex allergy status; Z3A.39 39 weeks gestation of pregnancy
CPT/HCPCS: 01967; 36415; 36430; 51702; 59025; 59409; 85014; 85018; 85027; 86592; 86850; 86900; 86901; 86920; 86921; 86922; A9270-GY; J0290; J2300; J2590; J2795; J3010; J7050; J7120; P9016; U0002

== ENCOUNTER 2021-07-06 19:27 | Emergency (ER) | payer SELFPAY ==
[2021-07-06] MEDS ORDERED: Tetracaine HCl/PF 0.5% 4 ML Bottle EYEBOTH ONE (19:33)
--- NOTE | 2021-07-06 20:32 | EDM.PDOC ---
ED HPI GENERAL MEDICAL PROBLEM - General Chief Complaint: Eye Problems Stated Complaint: EYE INJURY Time Seen by Provider: 07/06/21 20:07 - History of Present Illness INITIAL COMMENTS - FREE TEXT/NARRATIVE: 25-year-old female presents complaining of pain to her right eye. She is sleeping with her child who reached out and scratched her eye. No foreign body. No contact lenses. Moderate discomfort without exacerbating or alleviating factors Right Eye Pain Score (Numeric/FACES): 10 - Related Data Allergies Allergy/AdvReac Type Severity Reaction Status Date / Time latex Allergy Itching Verified 07/06/21 19:57 Home Meds: Home Meds Sertraline [Zoloft] 150 mg PO DAILY 01/21/21 [History] hydrOXYzine HCL [hydrOXYzine] 1 tab PO ASDIRECTED PRN 01/21/21 [History] Polymyxin B Sulf/Trimethoprim [Polytrim Eye Drops] 10 ml OP QID 10 Days #40 drops 07/06/21 [Rx] Past Medical History - Past Health History Medical/Surgical History: Denies Medical/Surgical History [employer] History: Reports: Psychiatric History: Reports: Anxiety, Depression - Infectious Disease History Infectious Disease History: Reports: Chicken Pox - Past Surgical History GI Surgical History: Reports: Hernia, Abdominal Social & Family History - Family History Family Medical History: No Pertinent Family History - Tobacco Use Second Hand Smoke Exposure: No - Caffeine Use Caffeine Use: Reports: None - Recreational Drug Use Recreational Drug Use: No ED ROS GENERAL - Review of Systems Review Of Systems: See Below HEENT: Reports: Eye Pain. Denies: Contact Lenses Skin: Denies: Rash ED EXAM GENERAL W FULL EYE - Physical Exam Exam: See Below Text/Narrative:: CONSTITUTIONAL: well appearing in no acute distress SKIN: dry, and intact without rash HENT: Normocephalic, atraumatic. Right eye without foreign body including evaluation under lower and upper eyelid. Fluorescein with Holguin lamp shows possible very small uptake lateral to the cornea itself. Pupil equal round reactive to light NECK: normal range of motion PULMONARY: normal chest rise and fall, no respiratory distress or stridor NEUROLOGIC: normal speech, moves all extremities, grossly non-focal MUSCULOSKELETAL: no gross deformities, atraumatic PSYCHIATRIC: normal mood and affect Course - Vital Signs Text/Narrative:: Differential diagnosis: Foreign body, corneal abrasion, corneal ulcer, other Patient presents as outlined above. Patient feeling better after numbing drops. Questionable mild pericorneal abrasion. Antibiotics to prevent infection. Supportive treat with return precautions and PCP/ophthalmology follow-up Last Recorded V/S: Last Vital Signs Temp 36.9 C 07/06/21 19:54 Pulse 88 07/06/21 19:54 Resp 20 07/06/21 19:54 BP 120/61 07/06/21 19:54 Pulse Ox 95 07/06/21 19:54 - Orders/Labs/Meds Orders: Active Orders 24 hr Category Date Time Status Vision Test [RC] ASDIRECTED Care 07/06/21 19:33 Active Meds: Medications Discontinued Medications Generic Name Dose Route Start Last Admin Trade Name Freq PRN Reason Stop Dose Admin Tetracaine HCl 1 ml 07/06/21 19:33 07/06/21 19:51 Tetracaine Hcl/Pf 0.5% 4 Ml Bottle EYEBOTH 07/06/21 19:34 2 drop ASDIRECTED ONE Administration Departure - Departure Time of Disposition: 20:30 Disposition: Home, Self-Care 01 Condition: Good Clinical Impression: Corneal abrasion - Discharge Information Prescriptions: Polymyxin B Sulf/Trimethoprim [Polytrim Eye Drops] 10 ml OP QID 10 Days #40 drops Instructions: Corneal Abrasion, [id number] Referrals: PCP,None [Primary Care Provider] - Forms: ED Department Discharge Additional Instructions: Return for any change or worsening condition or lack of improvement. Use antibiotic drops as prescribed. Follow-up with primary care doctor and ophthalmology early next week if symptoms persist Sepsis Event Note (ED) - Evaluation Sepsis Screening Result: No Definite Risk - Focused Exam Vital Signs: Vital Signs Temp Pulse Resp BP Pulse Ox 07/06/21 19:54 36.9 C 88 20 120/61 95
== END 2021-07-06 20:42 | disposition home or self-care (01) ==
LOC: MW.ED 19:27
DX: S05.01XA Injury of conjunctiva and corneal abrasion without foreign body, right eye, initial encounter (principal); Z91.040 Latex allergy status
CPT/HCPCS: 99283

== ENCOUNTER 2021-07-14 17:30 | Emergency (ER) | payer SELFPAY | END 2021-07-14 19:25 | disposition left against medical advice (07) | LOC: MW.ED 17:30 | DX: O99.891 Other specified diseases and conditions complicating pregnancy (principal); Z53.21 Procedure and treatment not carried out due to patient leaving prior to being seen by health care provider ==

== ENCOUNTER 2022-02-16 21:12 | Observation (INO) | payer BC ==
[2022-02-16 23:22] LABS: BLOOD UREA NITROGEN,BUN 4 mg/dL (7.0-18.0); CARBON DIOXIDE,CO2 21.3 mmol/L (21.0-32.0); CHLORIDE,CL 104 mmol/L (98-107); GLUCOSE RANDOM 84 mg/dL (74-106); POTASSIUM,K 3.4 mmol/L (3.5-5.1); SODIUM,NA 137 mmol/L (136-145)
[2022-02-17] MEDS ORDERED: hydrOXYzine Pamoate 25 MG Cap PO ONE (02:43)
== END 2022-02-17 12:30 | disposition home or self-care (01) ==
LOC: MW.OB 21:12 → MW.OBCHECK 21:12 → MW.OB 02-17 00:41
PROVIDERS: ADMIT Obstetrics & Gynecology Obstetrics; ATTEND Obstetrics & Gynecology Obstetrics
DX: O62.9 Abnormality of forces of labor, unspecified (principal); O99.013 Anemia complicating pregnancy, third trimester; O36.8330 Maternal care for abnormalities of the fetal heart rate or rhythm, third trimester, not applicable or unspecified; Z3A.37 37 weeks gestation of pregnancy; Z91.040 Latex allergy status; Z79.899 Other long term (current) drug therapy
CPT/HCPCS: 36415; 36430; 59025; 80053; 80305; 84112; 85014; 85018; 85027; 86850; 86900; 86901; 86920; 87653; A9270; G0378; P9016

== ENCOUNTER 2023-02-14 17:44 | Emergency (ER) | payer BC ==
[2023-02-14] MEDS ORDERED: Ondansetron 4 MG Tab.DIS PO STA (18:34)
[2023-02-14] MEDS ORDERED: Sodium Chloride 0.9% 2.5 ML Syringe FLUSH PRN (19:05)
[2023-02-14] MEDS ORDERED: Morphine 4 MG/ML Syringe IVPUSH STA (19:05)
[2023-02-14] MEDS ORDERED: Sodium Chloride 0.9% 1,000 ML IV STA ×2 (19:05→20:34)
[2023-02-14] MEDS ORDERED: Sodium Chloride 0.9% 10 ML Syringe FLUSH PRN (19:05)
[2023-02-14 19:27] LABS: COLOR,URINE YELLOW; GLUCOSE,URINE NEGATIVE (NEGATIVE); KETONES,URINE >=80 mg/dL (NEGATIVE); LEUKOCYTE ESTERASE,URINE NEGATIVE (NEGATIVE); NITRITE,URINE NEGATIVE (NEGATIVE); OCCULT BLOOD,URINE NEGATIVE (NEGATIVE); PROTEIN,URINE TRACE mg/dL (NEGATIVE); UROBILINOGEN,URINE 0.2 EU/dL (<2.0)
[2023-02-14 19:28] LABS: APPEARANCE,URINE HAZY; BILIRUBIN,URINE SMALL (NEGATIVE)
[2023-02-14 19:37] LABS: EPITHELIAL CELLS,URINE MODERATE (NONE-FEW); RBC,URINE 0-1 (0-2/HPF); WBC,URINE 0-2 (0-5/HPF)
[2023-02-14 19:38] LABS: BACTERIA,URINE FEW (NEGATIVE); MUCUS,URINE LIGHT (NONE-MOD)
[2023-02-14 19:41] LABS: BASOPHILS PERCENT AUTO 0.1 % (0.0-1.5); EOSINOPHILS ABSOLUTE AUTO 0.1 K/uL (0.0-0.7); EOSINOPHILS PERCENT AUTO 0.5 % (0.0-7.0); HEMATOCRIT 38.7 % (36.0-46.0); HEMOGLOBIN 12.9 g/dL (12.0-16.0); LYMPHOCYTES ABSOLUTE AUTO 2.2 K/uL (0.6-2.4); LYMPHOCYTES PERCENT AUTO 22.8 % (16.0-40.0); MEAN CORPUSCULAR HEMOGLOBIN 27.8 pg (27.0-32.0); MEAN CORPUSCULAR HGB CONC 33.3 g/dL (31.0-37.0); MEAN CORPUSCULAR VOLUME 83.4 fL (80.0-98.0); MONOCYTES ABSOLUTE AUTO 0.5 K/uL (0.0-0.8); MONOCYTES PERCENT AUTO 5.7 % (0.0-15.0); NEUTROPHILS ABSOLUTE AUTO 6.7 K/uL (1.4-5.7); NEUTROPHILS PERCENT AUTO 70.9 % (48.0-80.0); NRBC ABSOLUTE 0 K/uL; PLATELET COUNT,PLT 147 K/uL (150-400); RED BLOOD CELL COUNT 4.64 M/uL (4.30-5.90); WHITE BLOOD CELL COUNT,WBC 9.43 K/uL (4.0-11.0)
[2023-02-14 19:51] LABS: INR 1.14 (0.86-1.11)
[2023-02-14 20:07] LABS: A/G RATIO 1.2 (0.9-1.6); ALBUMIN 3.9 g/dL (3.4-5.0); CALCIUM 9.3 mg/dL (8.5-10.1); CREATININE 0.6 mg/dL (0.6-1.0); EST CRCL DRUG DOSING (CG) 107.22 mL/min; POTASSIUM,K 3.1 mmol/L (3.5-5.1); PROTEIN TOTAL,TP 7.1 g/dL (6.4-8.2)
[2023-02-14] MEDS ORDERED: Iopamidol 755 MG/ML 500 ML Multipack Bottle IVPUSH ONE (20:10)
[2023-02-14] MEDS ORDERED: HYDROmorphone 1 MG/ML Syringe IVPUSH STA (20:24)
[2023-02-14] MEDS ORDERED: Potassium Chloride 20 MEQ Tab.ER PO STA (22:01)
[2023-02-14] MEDS ORDERED: Prochlorperazine 10 MG/2 ML SDV IVPUSH STA (22:04)
[2023-02-14] MEDS ORDERED: Acetaminophen/oxyCODONE 325-10 MG Tab PO STA (22:58)
== END 2023-02-14 23:00 | disposition home or self-care (01) ==
LOC: MW.ED 17:44
DX: T74.91XA Unspecified adult maltreatment, confirmed, initial encounter (principal); S05.12XA Contusion of eyeball and orbital tissues, left eye, initial encounter; S05.11XA Contusion of eyeball and orbital tissues, right eye, initial encounter; S80.02XA Contusion of left knee, initial encounter; S40.011A Contusion of right shoulder, initial encounter; F07.81 Postconcussional syndrome; M25.511 Pain in right shoulder; K63.89 Other specified diseases of intestine; D69.6 Thrombocytopenia, unspecified; E87.6 Hypokalemia; Z91.040 Latex allergy status; Z86.16 Personal history of COVID-19; Y04.0XXA Assault by unarmed brawl or fight, initial encounter
CPT/HCPCS: 36415; 70450; 70486; 71260; 72125; 72128; 72131; 73030; 74177; 80053; 81001; 83735; 84702; 85025; 85610; 93005; 96361; 96374; 96375; 99285; A9270; J0780; J1170; J2270; J3490; J7030; Q9967; 93010

== ENCOUNTER 2024-06-21 19:25 | Emergency (ER) | payer BC ==
[2024-06-21] MEDS: Lidocaine 4% 1 each Patch TOP STA (20:53)
[2024-06-21] MEDS: Ketorolac 30 MG/ML SDV IM ONE (20:53)
[2024-06-21] MEDS: Alum Hydro/Mag Hydro/Simeth XS 15 ML, Lidocaine 2% 5 ML PO ONE (20:53)
[2024-06-21] MEDS: Aluminum Hydroxide/Magnesium Hydroxide/Simethicone XS Susp 30 ML Cup ONE (20:54)
[2024-06-21 21:16] LABS: BASOPHILS ABSOLUTE AUTO 0.02 K/uL (0.00-0.20); BASOPHILS PERCENT AUTO 0.3 % (0.0-1.0); EOSINOPHILS ABSOLUTE AUTO 0.06 K/uL (0.00-0.45); EOSINOPHILS PERCENT AUTO 0.8 % (0.0-6.0); HEMOGLOBIN 10.6 g/dL (12.0-16.0); IMMATURE GRAN ABSOLUTE AUTO 0.02 K/uL (0.00-0.05); IMMATURE GRAN PERCENT AUTO 0.3 % (0.0-0.4); LYMPHOCYTES ABSOLUTE AUTO 2.02 K/uL (1.00-4.80); LYMPHOCYTES PERCENT AUTO 26.8 % (24.0-44.0); MEAN CORPUSCULAR HEMOGLOBIN 25.1 pg (28.0-32.0); MEAN CORPUSCULAR HGB CONC 31.2 g/dL (32.0-36.0); MEAN CORPUSCULAR VOLUME 80.6 fL (83.0-99.0); MEAN PLATELET VOLUME 12.1 fL (9.4-12.3); MONOCYTES ABSOLUTE AUTO 0.49 K/uL (0.00-0.80); MONOCYTES PERCENT AUTO 6.5 % (0.0-8.0); NEUTROPHILS ABSOLUTE AUTO 4.93 K/uL (1.80-7.70); NEUTROPHILS PERCENT AUTO 65.3 % (41.0-71.0); PLATELET COUNT,PLT 232 K/uL (150-400); RED BLOOD CELL COUNT 4.22 M/uL (4.10-5.30); WHITE BLOOD CELL COUNT,WBC 7.54 K/uL (3.9-11.3)
[2024-06-21 21:48] LABS: A/G RATIO 1.1 (0.9-1.6); ALANINE AMINOTRANSFERASE,ALT 15 IU/L (14-63); ALBUMIN 3.8 g/dL (3.4-5.0); ALKALINE PHOSPHATASE 73 U/L (46-116); ASPARTATE AMNIOTRANSFERASE,AST 15 IU/L (15-37); BILIRUBIN TOTAL 0.6 mg/dL (0.2-1.0); BLOOD UREA NITROGEN,BUN 8 mg/dL (7.0-18.0); CALCIUM 9.5 mg/dL (8.5-10.1); CARBON DIOXIDE,CO2 28.3 mmol/L (21.0-32.0); CHLORIDE,CL 103 mmol/L (98-107); CREATININE 0.6 mg/dL (0.6-1.0); EST CRCL DRUG DOSING (CG) 106.28 mL/min; GLUCOSE RANDOM 104 mg/dL (74-106); POTASSIUM,K 3.8 mmol/L (3.5-5.1); PROTEIN TOTAL,TP 7.4 g/dL (6.4-8.2); SODIUM,NA 139 mmol/L (136-145); TSH ULTRASENSITIVE 1.53 uIU/mL (0.36-3.74)
[2024-06-21 21:55] LABS: ESTIMATED GFR 126 mL/min (>60)
== END 2024-06-21 22:29 | disposition home or self-care (01) ==
LOC: MW.ED 19:25
DX: R07.9 Chest pain, unspecified (principal); K21.9 Gastro-esophageal reflux disease without esophagitis; Z79.899 Other long term (current) drug therapy; Z91.040 Latex allergy status; Z75.8 Other problems related to medical facilities and other health care
CPT/HCPCS: 36415; 80053; 83735; 84443; 84484; 85025; 93005; 96372; 99284; A9270; J1885; 93010; 99283